=== PATIENT | female | born 1950 | race Caucasian/White ===

== ENCOUNTER 2018-05-28 14:19 | Emergency (ER) | payer MEDICARE ==
[~2018-05-28] VITALS: Wt 152.7 kg
[2018-05-28] MEDS ORDERED: ONDANSETRON 4 MG INJ IV STA (16:21)
[2018-05-28] MEDS ORDERED: SOD CHLORIDE 0.9% 1,000 ML IV STA ×2 (16:21→18:19)
[2018-05-28] MEDS ORDERED: LIDOCAINE/MYLANTA 40 ML BTL PO STA (18:21)
[2018-05-28] MEDS ORDERED: FAMOTIDINE 20 MG TAB PO STA (18:21)
[2018-05-28 18:35] VITALS: BP 149/83; PULSE 86; RESP 20
[2018-05-28] MEDS ORDERED: FAMO-96 PO (20:06)
[2018-05-28] MEDS ORDERED: ONDA4TAB14 PO (20:06)
--- NOTE | 2018-05-29 00:12 | ERD ---
ER Documentation Chief Complaint Chief Complaint vomiting x 1 week, denies any pain, denies any medical hx HPI 68-year-old female with no significant past medical history pain with complaints of nausea and vomiting for the past 6 days after eating out at a restaurant a week ago. She has been feeling nauseated with some epigastric discomfort, acid reflux, and vomiting. She denies any diarrhea or constipation. No hematochezia or melena. No hematemesis. She denies any associated headache, fever, chills, focal weakness or numbness, chest pain, shortness of breath, or abdominal pain. No dysuria or hematuria. She is not currently on any medications. ROS All systems reviewed and are negative except as per history of present illness. Medications Home Meds Active Scripts Ondansetron (Ondansetron Odt) 4 Mg Tab.rapdis, 4 MG PO Q6H PRN for NAUSEA AND/OR VOMITING, #10 TAB Prov:MARK SARABIA MD 05/28/18 Famotidine* (Pepcid*) 20 Mg Tablet, 20 MG PO BID for 10 Days, TAB Prov:MARK SARABIA MD 05/28/18 Allergies Allergies: Coded Allergies: No Known Allergy (Unverified , 05/28/18) PMhx/Soc Medical and Surgical Hx: pt denies Medical Hx, pt denies Surgical Hx Hx Alcohol Use: No Hx Substance Use: No Hx Tobacco Use: No Smoking Status: Never smoker FmHx Family History: No diabetes Physical Exam Vitals Vital Signs Date Temp Pulse Resp B/P (MAP) Pulse Ox O2 O2 Flow FiO2 Time Delivery Rate 05/28/18 86 20 149/83 96 Room Air 18:35 (105) 05/28/18 98.3 87 14 135/93 97 Room Air 18:04 (107) 05/28/18 98.3 92 20 122/96 95 Room Air 17:13 (105) 05/28/18 98.3 101 20 145/93 95 Room Air 16:15 (110) 05/28/18 98.3 119 20 127/75 94 14:24 (92) Physical Exam Const: No acute distress, well-appearing. Obese. Head: Atraumatic Eyes: Normal Conjunctiva ENT: Dry mucous membranes. Normal External Ears, Nose and Mouth. Neck: Full range of motion. No meningismus. Resp: Clear to auscultation bilaterally Cardio: Regular rate and rhythm, no murmurs Abd: Soft, non tender, non distended. Normal bowel sounds Skin: No petechiae or rashes Back: No midline or flank tenderness Ext: No cyanosis, or edema Neur: Awake and alert, normal speech, no facial asymmetry, moving all extremities Psych: Normal Mood and Affect Result Diagram: 05/28/18 1659 05/28/18 1659 Results 24 hrs Laboratory Tests Test 05/28/18 16:59 White Blood Count 13.3 10^3/ul Red Blood Count 6.07 10^6/ul Hemoglobin 17.5 g/dl Hematocrit 53.2 % Mean Corpuscular Volume 87.6 fl Mean Corpuscular Hemoglobin 28.8 pg Mean Corpuscular Hemoglobin Concent 32.9 g/dl Red Cell Distribution Width 15.4 % Platelet Count 257 10^3/UL Mean Platelet Volume 11.8 fl Immature Granulocytes % 0.500 % Neutrophils % 72.7 % Lymphocytes % 15.8 % Monocytes % 10.0 % Eosinophils % 0.5 % Basophils % 0.5 % Nucleated Red Blood Cells % 0.0 /100WBC Immature Granulocytes # 0.070 10^3/ul Neutrophils # 9.7 10^3/ul Lymphocytes # 2.1 10^3/ul Monocytes # 1.3 10^3/ul Eosinophils # 0.1 10^3/ul Basophils # 0.1 10^3/ul Nucleated Red Blood Cells # 0.0 10^3/ul Sodium Level 135 mmol/L Potassium Level 3.4 mmol/L Chloride Level 89 mmol/L Carbon Dioxide Level 26 mmol/L Anion Gap 20 Blood Urea Nitrogen 31 mg/dl Creatinine 1.59 mg/dl Est Glomerular Filtrat Rate mL/min 32 mL/min Glucose Level 168 mg/dl Calcium Level 9.6 mg/dl Total Bilirubin 1.2 mg/dl Direct Bilirubin 0.00 mg/dl Indirect Bilirubin 1.2 mg/dl Aspartate Amino Transf (AST/SGOT) 45 IU/L Alanine Aminotransferase (ALT/SGPT) 25 IU/L Alkaline Phosphatase 118 IU/L Total Protein 8.3 g/dl Albumin 4.4 g/dl Globulin 3.90 g/dl Albumin/Globulin Ratio 1.12 Lipase 245 U/L Current Medications Medications Dose Sig/Jovon Start Time Status Last (Trade) Ordered Route PRN Stop Time Admin Dose Reason Admin Sodium 1,000 ml @ Q1H STAT 05/28/18 DC 05/28/18 Chloride 1,000 mls/hr IV 16:21 16:25 05/28/18 17:20 Ondansetron 4 mg ONCE STAT 05/28/18 DC 05/28/18 HCl (Zofran IV 16:21 16:29 Inj) 05/28/18 16:23 Sodium 1,000 ml @ Q1H STAT 05/28/18 DC 05/28/18 Chloride 1,000 mls/hr IV 18:19 18:31 05/28/18 19:18 Famotidine 20 mg ONCE STAT 05/28/18 DC 05/28/18 (Pepcid) PO 18:21 18:31 05/28/18 18:22 40 ml ONCE STAT 05/28/18 DC 05/28/18 Miscellaneous PO 18:21 18:31 Medication 05/28/18 18:22 (Gi Cocktail (2)) Procedures/MDM EMERGENT LABS AND DIAGNOSTIC STUDIES: Lab Results above were reviewed and interpreted by me. CBC: Mild leukocytosis and elevated hemoglobin, likely secondary to hemoconcen tration from dehydration CMP: Elevated BUN and creatinine, consistent with acute renal insufficiency, likely prerenal etiology. Borderline hypokalemia. No evidence of acidosis, hypoglycemia, liver failure, or biliary obstruction Lipase: no evidence of pancreatitis 12-lead EKG was interpreted by Rocio Sarabia MD: Normal sinus rhythm Normal axis Normal intervals Abnormal R wave progression No acute ST or T wave changes suggestive of acute ischemia or STEMI. Initial Nursing notes reviewed. Previous Medical Records requested via the Electronic Health Record. EMERGENCY DEPARTMENT COURSE / MEDICAL DECISION MAKING: Patient is presenting with 1 week of nausea and vomiting with symptoms of gastritis as well. Initially she was tachycardic when she arrived and obviously dehydrated on exam. 2 L of IV fluids were given as well as antiemetics and GI cocktail. Labs did show evidence of prerenal azotemia, likely secondary to dehydration. After treatment, she was reevaluated and her symptoms had significantly improved. She was tolerating fluids by mouth in the ER with no further vomiting. I recommended discharge as the patient has remained stable. She does have acute renal insufficiency which may be followed up outpatient. Patient reassured me that she will be able to get seen by a I discussed with her DrAdolfo this week to get repeat blood tests within the next 3 days to recheck her kidney function. The results of her testing and my thoughts as to why her kidney function was diminished. Now that the patient is able to orally hydrate, she feels that she is comfortable going home. I encouraged to return for any worsening symptoms. She ensures me that she will get outpatient follow-up for repeat blood testing. I provided her with a copy of her results from today. Patient was stable upon discharge. Patient's blood pressure was elevated (>120/80) but appears stable without evidence of hypertensive emergency or urgency. The patient was counseled about the risks of hypertension and urged to pursue outpatient monitoring and therapy within a week with their primary care physician. Departure Diagnosis: Primary Impression: Vomiting Vomiting type: unspecified Vomiting Intractability: non-intractable Nausea presence: with nausea Qualified Codes: R11.2 - Nausea with vomiting, unspecified Additional Impressions: Acute renal insufficiency Dehydration Condition: Stable Patient Instructions: Vomiting (6Y-Adult), Renal Insufficiency Additional Instructions: Your kidney function was abnormal today, likely because of all of your vomiting and dehydration. I would like you to get your kidney function checked again within the next 2-3 days. If any of your symptoms worsen, return to the ER immediately. MARK SARABIA MD May 29, 2018 00:12
== END 2018-05-28 21:49 | disposition home or self-care (01) ==
LOC: E/R 14:19
DX: N28.9 Disorder of kidney and ureter, unspecified (principal); E86.0 Dehydration
CPT/HCPCS: 36415; 80053; 83690; 85025; 93005; 96374; 99284; J2405; J7030

== ENCOUNTER 2018-05-30 15:05 | Inpatient (IN) | payer MEDICARE ==
[~2018-05-30] VITALS: Ht 167.6 cm; Wt 159.7 kg
[2018-05-30] VITALS (20 sets, daily range): BP systolic 65–147; BP diastolic 49–84; PULSE 76–94; RESP 15–25
[~2018-05-30 15:05] MED LIST: DESFLURANE 15 MIN ONE; FAMO-96 PO; LIDOCAINE 2% (SDV) 5 ML INJ ONE; ONDA4TAB14 PO; PROPOFOL 200 MG INJ ONE
[2018-05-30] MEDS ORDERED: SOD CHLORIDE 0.9% 1,000 ML IV STA (15:17)
[2018-05-30] MEDS ORDERED: ONDANSETRON 4 MG INJ IV STA ×2 (15:17→17:44)
--- NOTE | 2018-05-30 16:02 | ERD ---
ER Documentation Chief Complaint Chief Complaint Nausea vomiting x 1 week. denies abdominal pain or sob HPI 68F no prior abd surgeries with nausea and vomiting x 1 week. Seen here over the weekend for same. Patient with persistent symptoms with NBNB emesis, and mild epigastric abdominal pain. No BM x 1week but passing gas. No chest pain fever, chills, or headache. ROS All systems reviewed and are negative except as per history of present illness. Medications Home Meds Active Scripts Ondansetron (Ondansetron Odt) 4 Mg Tab.rapdis, 4 MG PO Q6H PRN for NAUSEA AND/OR VOMITING, #10 TAB Prov:MARK RIOS MD 05/28/18 Famotidine* (Pepcid*) 20 Mg Tablet, 20 MG PO BID for 10 Days, TAB Prov:MARK RIOS MD 05/28/18 Allergies Allergies: Coded Allergies: No Known Allergy (Unverified , 05/30/18) PMhx/Soc Hx Miscellaneous Medical Probl: Yes (OBESE) Hx Alcohol Use: No Hx Substance Use: No Hx Tobacco Use: No Smoking Status: Never smoker FmHx Family History: No diabetes Physical Exam Vitals Vital Signs Date Temp Pulse Resp B/P (MAP) Pulse Ox O2 O2 Flow FiO2 Time Delivery Rate 05/30/18 79 18 126/78 99 Room Air 17:46 (94) 05/30/18 98.6 102 18 131/76 95 15:13 (94) Physical Exam General: Well developed, well nourished, no acute distress Head: Normocephalic, atraumatic. Eyes: Pupils equally reactive, EOM intact ENT: Moist mucous membranes Neck: Supple, no lymphadenopathy Respiratory: Lungs clear bilaterally, no distress Cardiovascular: RRR, no murmurs, rubs, or gallops Abdominal: Soft, somewhat firm epigastrium without rebound or guarding, no peritonitis, no pulsatile mass : Deferred MSK: No edema, no unilateral swelling, 5/5 strength Neurologic: Alert and oriented, moving all extremities, normal speech, no focal weakness, no cerebellar signs Skin: No rash Psych: Normal mood Result Diagram: 05/30/18 1603 05/30/18 1603 Results 24 hrs Laboratory Tests Test 05/30/18 16:03 White Blood Count 10.7 10^3/ul Red Blood Count 5.63 10^6/ul Hemoglobin 16.5 g/dl Hematocrit 49.5 % Mean Corpuscular Volume 87.9 fl Mean Corpuscular Hemoglobin 29.3 pg Mean Corpuscular Hemoglobin Concent 33.3 g/dl Red Cell Distribution Width 14.7 % Platelet Count 224 10^3/UL Mean Platelet Volume 12.3 fl Immature Granulocytes % 0.500 % Neutrophils % 78.3 % Lymphocytes % 8.7 % Monocytes % 11.5 % Eosinophils % 0.4 % Basophils % 0.6 % Nucleated Red Blood Cells % 0.0 /100WBC Immature Granulocytes # 0.050 10^3/ul Neutrophils # 8.4 10^3/ul Lymphocytes # 0.9 10^3/ul Monocytes # 1.2 10^3/ul Eosinophils # 0.0 10^3/ul Basophils # 0.1 10^3/ul Nucleated Red Blood Cells # 0.0 10^3/ul Sodium Level 135 mmol/L Potassium Level 3.5 mmol/L Chloride Level 90 mmol/L Carbon Dioxide Level 29 mmol/L Anion Gap 16 Blood Urea Nitrogen 26 mg/dl Creatinine 1.15 mg/dl Est Glomerular Filtrat Rate mL/min 47 mL/min Glucose Level 170 mg/dl Calcium Level 9.2 mg/dl Total Bilirubin 0.7 mg/dl Direct Bilirubin 0.00 mg/dl Indirect Bilirubin 0.7 mg/dl Aspartate Amino Transf (AST/SGOT) 28 IU/L Alanine Aminotransferase (ALT/SGPT) 31 IU/L Alkaline Phosphatase 94 IU/L Troponin I < 0.012 ng/ml Total Protein 7.6 g/dl Albumin 4.0 g/dl Globulin 3.60 g/dl Albumin/Globulin Ratio 1.11 Lipase 821 U/L Current Medications Medications Dose Sig/Jovon Start Time Status Last (Trade) Ordered Route PRN Stop Time Admin Dose Reason Admin Sodium 1,000 ml @ Q1H STAT 05/30/18 DC 05/30/18 Chloride 1,000 mls/hr IV 15:17 16:05 05/30/18 16:16 Ondansetron 4 mg ONCE STAT 05/30/18 DC 05/30/18 HCl (Zofran IV 15:17 16:05 Inj) 05/30/18 15:18 Lidocaine 15 ml ONCE ONCE 05/30/18 DC 05/30/18 (Xylocaine PO 17:30 17:47 (Viscous)) 05/30/18 17:31 Lorazepam 0.5 mg ONCE ONCE 05/30/18 DC 05/30/18 (Ativan) IV 17:30 17:47 05/30/18 17:31 Ondansetron 4 mg ONCE STAT 05/30/18 DC 05/30/18 HCl (Zofran IV 17:44 17:47 Inj) 05/30/18 17:45 Ampicillin 100 ml @ ONCE ONCE 05/30/18 Sodium/ 100 mls/hr IVPB 18:00 Sulbactam 05/30/18 18:59 Sodium Ondansetron 4 mg BRIDGE ORDER 05/30/18 HCl (Zofran PRN IV 18:30 Inj) NAUSEA/VOMITI 05/31/18 18:29 NG 650 mg ER BRIDGE 05/30/18 Acetaminophen PRN PO 18:30 (Tylenol .MILD PAIN 05/31/18 18:29 Tab) 1-3 OR TEMP IV Flush 3 ml PER 05/30/18 (NS 3 ml) PROTOCOL IV 18:30 Ondansetron 4 mg Q6H PRN 05/30/18 HCl (Zofran IV 18:30 Inj) NAUSEA/VOMITI NG 650 mg Q6H PRN 05/30/18 Acetaminophen PO .PAIN 1-3 18:30 (Tylenol OR TEMP Tab) 1 tab Q6H PRN 05/30/18 Acetaminophen PO .MOD PAIN 18:30 / 4-6 Hydrocodone Bitart ([place] (5/325)) Morphine 2 mg Q4H PRN 05/30/18 Sulfate IV .SEVERE 18:30 (morphine) PAIN 7-10 Docusate 100 mg Q12H PRN 05/30/18 Sodium PO 18:30 (Colace) .CONSTIPATION Magnesium 30 ml DAILY PRN 05/30/18 Hydroxide PO 18:30 (Milk Of Mag) .CONSTIPATION 40 mg DAILY@06 05/31/18 Pantoprazole IV 06:00 (Protonix Iv) Sodium 1,000 ml @ [id number] IV 05/30/18 Chloride 75 mls/hr 18:23 Lorazepam 0.5 mg Q6H PRN 05/30/18 (Ativan) IV ANXIETY 18:30 Albuterol/ 3 ml Q4H RESP 05/30/18 Ipratropium THERAPY PRN 18:30 (Duoneb) HHN SHORTNESS OF BREATH Hydralazine 10 mg Q6H PRN 05/30/18 HCl IV ELEVATED 18:30 (Apresoline) BLOOD PRESSURE 1 tab Q5M PRN 05/30/18 Nitroglycerin SL ANGINA 18:30 (Nitroglyceri n (Sl Tab) 0.4 Mg) Procedures/MDM EKG, MONITORS, & DIAGNOSTIC IMAGING: CT abdomen and pelvis: IMPRESSION: 1. Findings consistent with small bowel obstruction with transitional point in the right pelvis/distal ileum. 2. Status post cholecystectomy. Diffuse pneumobilia of the common bile duct extending to the left greater than right biliary system. Correlate with prior ER CP/sphincterotomy. 3. CBD is mildly dilated and measures 8 mm. No obstructive mass or stone is identified distally. 4. Multiple colonic diverticulosis. LAB INTERPRETATION: I reviewed the laboratory testing and it shows no acute process MEDICAL DECISION MAKING: The patient has persistent nausea and vomiting with a firm epigastrium. The patient does not have any significant risk factors for bowel obstruction but given the patient's persistence of symptoms, decreased bowel movements I am concerned for possible acute process. CT imaging of the abdomen pelvis would be appropriate. ER COURSE: * Hydration and symptom control medications provided * The patient has CT evidence of small bowel obstruction. NG tube placed. Patient had output of 1 L, mild improvement * General surgeon notified. Dr. Harris reviewed the CT we discussed the possibility of cholecystectomy in the patient's history but she denies surgical intervention in the past. Likely completely compressed gallbladder. Given the possible air in the biliary tree Unasyn provided. * Given the duration of symptoms Dr. Harris would like to take the patient to the operating room. The patient was informed. She is n.p.o. NG tube is placed. Pain is well controlled. CONSULTATION: General surgeon Dr. Harris as documented above DISPOSITION PLAN: Accepting care team and consultations: I discussed the current laboratory data, diagnostic imaging and emergency care provided. Admitting team: Dr. Armas Admitting team indication: Insurance directed Departure Diagnosis: Primary Impression: Small bowel obstruction Additional Impressions: Pneumobilia Nausea and vomiting Vomiting type: unspecified Vomiting Intractability: intractable Qualified Codes: R11.2 - Nausea with vomiting, unspecified Condition: Stable TERRY KATE MD May 30, 2018 16:02
[2018-05-30] MEDS ORDERED: LIDOCAINE 2% VISC 15 ML CUP PO ONE (17:30)
[2018-05-30] MEDS ORDERED: LORAZEPAM 2 MG INJ IV ONE (17:30)
[2018-05-30] MEDS ORDERED: AMPICILLIN/SULB 3 GM/NS (PMX) 100 ML IVPB ONE (18:00)
[2018-05-30] MEDS ORDERED: ACETAMINOPHEN 325 MG TAB PO PRN ×2 (18:30)
[2018-05-30] MEDS ORDERED: ALBUTEROL/IPRATROPIUM (NEB) 3 ML AMP HHN PRN (18:30)
[2018-05-30] MEDS ORDERED: ONDANSETRON 4 MG INJ IV PRN ×3 (18:30→22:30)
[2018-05-30] MEDS ORDERED: morphine 2 MG INJ IV PRN ×2 (18:30→22:30)
[2018-05-30] MEDS ORDERED: NITROGLYCERIN (SL) 0.4 MG TAB SL PRN (18:30)
[2018-05-30] MEDS ORDERED: HYDROCODONE/APAP (5/325) TAB PO PRN (18:30)
[2018-05-30] MEDS ORDERED: MAGNESIUM HYDROXIDE 30ML CUP PO PRN (18:30)
[2018-05-30] MEDS ORDERED: NACL 0.9% 3 ML SYG IV SCH (18:30)
[2018-05-30] MEDS ORDERED: hydrALAzine 20 MG INJ IV PRN (18:30)
[2018-05-30] MEDS ORDERED: DOCUSATE SODIUM 100 MG CAP PO PRN (18:30)
[2018-05-30] MEDS ORDERED: LIDOCAINE 1% (MPF) 30 ML INJ ONE (18:50)
[2018-05-30] MEDS ORDERED: BUPIVACAINE 0.5%/EPI (SDV) 30 ML INJ ONE (18:50)
--- NOTE | 2018-05-30 19:25 | PREAC ---
Date/Time of Note Date/Time of Note DATE: 05/30/18 TIME: 19:24 Anesthesia Eval and Record Evaluation Time Pre-Procedure Interview DATE: 05/30/18 TIME: 19:24 Age 68 Sex female NPO: 8 hrs Preoperative diagnosis bowel obstruction Planned procedure ex lap Past Medical History Past Medical History: Includes GI: Obesity Surgery & Anesthesia Issues No known issue Meds Anticoagulation: No Beta Karolina within 24 hr: No Reason Beta Karolina not given: Pt. not on B-Karolina Active Scripts Ondansetron (Ondansetron Odt) 4 Mg Tab.rapdis, 4 MG PO Q6H PRN for NAUSEA AND/OR VOMITING, #10 TAB Prov:MARK RIOS MD 05/28/18 Famotidine* (Pepcid*) 20 Mg Tablet, 20 MG PO BID for 10 Days, TAB Prov:MARK RIOS MD 05/28/18 Current Medications Ondansetron HCl (Zofran Inj) 4 mg BRIDGE ORDER PRN IV NAUSEA/VOMITING; Start 05/30/18 at 18:30; Stop 05/31/18 at 18:29 Acetaminophen (Tylenol Tab) 650 mg ER BRIDGE PRN PO .MILD PAIN 1-3 OR TEMP; Start 05/30/18 at 18:30; Stop 05/31/18 at 18:29 IV Flush (NS 3 ml) 3 ml PER PROTOCOL IV ; Start 05/30/18 at 18:30 Ondansetron HCl (Zofran Inj) 4 mg Q6H PRN IV NAUSEA/VOMITING; Start 05/30/18 at 18:30 Acetaminophen (Tylenol Tab) 650 mg Q6H PRN PO .PAIN 1-3 OR TEMP; Start 05/30/18 at 18:30 Acetaminophen/ Hydrocodone Bitart ([place] (5/325)) 1 tab Q6H PRN PO .MOD PAIN 4- 6; Start 05/30/18 at 18:30 Morphine Sulfate (morphine) 2 mg Q4H PRN IV .SEVERE PAIN 7-10; Start 05/30/18 at 18:30 Docusate Sodium (Colace) 100 mg Q12H PRN PO .CONSTIPATION; Start 05/30/18 at 18:30 Magnesium Hydroxide (Milk Of Mag) 30 ml DAILY PRN PO .CONSTIPATION; Start 05/30/18 at 18:30 Pantoprazole (Protonix Iv) 40 mg DAILY@06 IV ; Start 05/31/18 at 06:00 Sodium Chloride 1,000 ml @ 75 mls/hr [id number] IV ; Start 05/30/18 at 18:23 Lorazepam (Ativan) 0.5 mg Q6H PRN IV ANXIETY; Start 05/30/18 at 18:30 Albuterol/ Ipratropium (Duoneb) 3 ml Q4H RESP THERAPY PRN HHN SHORTNESS OF BREATH; Start 05/30/18 at 18:30 Hydralazine HCl (Apresoline) 10 mg Q6H PRN IV ELEVATED BLOOD PRESSURE; Start 05/30/18 at 18:30 Nitroglycerin (Nitroglycerin (Sl Tab) 0.4 Mg) 1 tab Q5M PRN SL ANGINA; Start 05/30/18 at 18:30 Meds reviewed: Yes Allergies Coded Allergies: No Known Allergy (Unverified , 05/30/18) Allergies Reviewed: Yes Labs/Studies Labs Reviewed: Reviewed by anesthesiologist Result Diagram: 05/30/18 1603 05/30/18 1603 Laboratory Tests 05/30/18 16:03 test: N/A Pre-procedure Exam Last vitals Vital Signs Date Temp Pulse Resp B/P (MAP) Pulse Ox O2 O2 Flow FiO2 Time Delivery Rate 05/30/18 79 18 126/78 99 Room Air 17:46 (94) 05/30/18 98.6 15:13 Airway: Adequate mouth opening, Adequate thyromental dist Mallampati: Mallampati IV Teeth: Normal Lung: Normal Heart: Normal ASA Physical Status ASA physical status: 2 Emergency: E Pre-operative Attestations Prior to commencing anesthesia and surgery, the patient was re-evaluated, there was verification of: *The patient's identity *The results of appropriate recent lab work and preoperative vital signs *The above evaluation not changing prior to induction *Anesthetic plan, risk benefits, alternative and complications discussed with patient/family; questions answered; patient/family understands, accepts and wishes to proceed. BEAR MAGAÑA DO May 30, 2018 19:25
--- NOTE | 2018-05-30 19:42 | CONS ---
Assessment/Plan Assessment/Plan Hospital Course (Demo Recall) NG tube was placed that drained fecal content. Problems: (1) Gallstone ileus of small intestine (2) Pneumobilia Status: Acute (3) Small bowel obstruction Status: Acute Assessment/Plan (Daily) Patient presents with a clinical picture of gallstone ileus. 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 Patient need emergency surgery to resolve the high-grade small bowel obstruction. I discussed with the patient risk and benefits are discussed possible complications and possible side effects of the surgery including but not limited to bleeding infection wound infection anesthesia complication blood clots. I will I will attempt to do a laparoscopic exploration to minimize the incision but the patient will probably need a laparotomy to solve the problem Consultation Date/Type/Reason Admit Date/Time Date of Consultation: May 30, 2018 Type of Consult Surgical Reason for Consultation Small bowel obstruction Requesting Provider: TERRY KATE MD Date/Time of Note DATE: 05/30/18 TIME: 19:32 Hx of Present Illness 9 days ago patient developed abdominal pain nausea and vomiting. She has been with the situation at home for about a week until she presented to the emergency room 2 days ago at [facility]. She was observed blood tests were done and she was discharged. Patient returned today complaining of severe nausea and vomiting obstipation and constipation that lasted for the last 9 days. Patient also complained on the right lower quadrant abdominal pain. 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 Last time patient seen the health care provider was approximately 10 years ago. Patient considers herself being healthy that is why she did not seek any medical advice. Constitutional: no complaints, improved Eyes: no complaints ENT: no complaints Respiratory: no complaints Cardiovascular: no complaints Gastrointestinal: pain, constipation, nausea, vomiting, other (Abdominal distention) Genitourinary: no complaints Musculoskeletal: no complaints Skin: no complaints Neurologic: no complaints Endocrine: no complaints Lymphatic: no complaints Psychological: no complaints, nl mood/affect Immunologic: no complaints Past Medical History Medical History: no pertinent history Home Meds Active Scripts Ondansetron (Ondansetron Odt) 4 Mg Tab.rapdis, 4 MG PO Q6H PRN for NAUSEA AND/OR VOMITING, #10 TAB Prov:MARK RIOS MD 05/28/18 Famotidine* (Pepcid*) 20 Mg Tablet, 20 MG PO BID for 10 Days, TAB Prov:MARK RIOS MD 05/28/18 Medications Current Medications Ondansetron HCl (Zofran Inj) 4 mg BRIDGE ORDER PRN IV NAUSEA/VOMITING; Start 05/30/18 at 18:30; Stop 05/31/18 at 18:29 Acetaminophen (Tylenol Tab) 650 mg ER BRIDGE PRN PO .MILD PAIN 1-3 OR TEMP; Start 05/30/18 at 18:30; Stop 05/31/18 at 18:29 IV Flush (NS 3 ml) 3 ml PER PROTOCOL IV ; Start 05/30/18 at 18:30 Ondansetron HCl (Zofran Inj) 4 mg Q6H PRN IV NAUSEA/VOMITING; Start 05/30/18 at 18:30 Acetaminophen (Tylenol Tab) 650 mg Q6H PRN PO .PAIN 1-3 OR TEMP; Start 05/30/18 at 18:30 Acetaminophen/ Hydrocodone Bitart ([place] (5/325)) 1 tab Q6H PRN PO .MOD PAIN 4- 6; Start 05/30/18 at 18:30 Morphine Sulfate (morphine) 2 mg Q4H PRN IV .SEVERE PAIN 7-10; Start 05/30/18 at 18:30 Docusate Sodium (Colace) 100 mg Q12H PRN PO .CONSTIPATION; Start 05/30/18 at 18 :30 Magnesium Hydroxide (Milk Of Mag) 30 ml DAILY PRN PO .CONSTIPATION; Start 05/30/18 at 18:30 Pantoprazole (Protonix Iv) 40 mg DAILY@06 IV ; Start 05/31/18 at 06:00 Sodium Chloride 1,000 ml @ 75 mls/hr [id number] IV ; Start 05/30/18 at 18:23 Lorazepam (Ativan) 0.5 mg Q6H PRN IV ANXIETY; Start 05/30/18 at 18:30 Albuterol/ Ipratropium (Duoneb) 3 ml Q4H RESP THERAPY PRN HHN SHORTNESS OF BREATH; Start 05/30/18 at 18:30 Hydralazine HCl (Apresoline) 10 mg Q6H PRN IV ELEVATED BLOOD PRESSURE; Start 05/30/18 at 18:30 Nitroglycerin (Nitroglycerin (Sl Tab) 0.4 Mg) 1 tab Q5M PRN SL ANGINA; Start 05/30/18 at 18:30 Allergies: Coded Allergies: No Known Allergy (Unverified , 05/30/18) Past Surgical History Past Surgical Hx: no surgical history Family History Significant Family History: no pertinent family hx Social History Smoking Status: Never smoker Other Social History Patient is retired Exam/Review of Systems Exam Vitals Vital Signs Date Temp Pulse Resp B/P (MAP) Pulse Ox O2 O2 Flow FiO2 Time Delivery Rate 05/30/18 98.1 84 17 106/67 99 Room Air 19:29 (80) Constitutional: alert, oriented, well developed Psych: no complaints, nl mood/affect Head: normocephalic, atraumatic Eyes: nl conjunctiva, EOMI, nl lids, nl sclera, PERRL ENMT: nl external ears & nose, nl lips & teeth, nl nasal mucosa & septum Neck: supple, non-tender Respiratory: clear to auscultation, normal air movement Cardiovascular: regular rate and rhythm, nl pulses Gastrointestinal: other (The abdomen is very obese, is severely distended, tense, not tender to palpation. 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, No nl mental status, No nl speech, No nl strength, No confused, No DTR's symmetric, No focal weakness, No lethargic, No numbness, No reflexes, No unresponsive, No other Skin: nl turgor; No rash or lesions Lymph: nl lymph nodes Results Result Diagram: 05/30/18 1603 05/30/18 1603 Results 24hrs Laboratory Tests Test 05/30/18 16:03 White Blood Count 10.7 Red Blood Count 5.63 H Hemoglobin 16.5 H Hematocrit 49.5 H Mean Corpuscular Volume 87.9 Mean Corpuscular Hemoglobin 29.3 Mean Corpuscular Hemoglobin Concent 33.3 Red Cell Distribution Width 14.7 H Platelet Count 224 Mean Platelet Volume 12.3 H Immature Granulocytes % 0.500 H Neutrophils % 78.3 H Lymphocytes % 8.7 L Monocytes % 11.5 H Eosinophils % 0.4 Basophils % 0.6 Nucleated Red Blood Cells % 0.0 Immature Granulocytes # 0.050 H Neutrophils # 8.4 H Lymphocytes # 0.9 Monocytes # 1.2 H Eosinophils # 0.0 Basophils # 0.1 Nucleated Red Blood Cells # 0.0 Prothrombin Time 12.5 Prothrombin Time Ratio 1.0 INR International Normalized Ratio 0.92 Activated Partial Thromboplast Time 25.8 Sodium Level 135 Potassium Level 3.5 Chloride Level 90 L Carbon Dioxide Level 29 Anion Gap 16 H Blood Urea Nitrogen 26 H Creatinine 1.15 H Est Glomerular Filtrat Rate mL/min 47 L Glucose Level 170 Calcium Level 9.2 Total Bilirubin 0.7 Direct Bilirubin 0.00 Indirect Bilirubin 0.7 Aspartate Amino Transf (AST/SGOT) 28 Alanine Aminotransferase (ALT/SGPT) 31 Alkaline Phosphatase 94 Troponin I < 0.012 Total Protein 7.6 Albumin 4.0 Globulin 3.60 H Albumin/Globulin Ratio 1.11 Lipase 821 H Free Thyroxine 1.[address] scan performed that showed large amount of air in the biliary tree with the no visualization of the gallbladder. In addition to that severe distention of the small bowel with transition point in the right lower quadrant with collapsed large bowel Medications Medication Current Medications Ondansetron HCl (Zofran Inj) 4 mg BRIDGE ORDER PRN IV NAUSEA/VOMITING; Start 05/30/18 at 18:30; Stop 05/31/18 at 18:29 Acetaminophen (Tylenol Tab) 650 mg ER BRIDGE PRN PO .MILD PAIN 1-3 OR TEMP; Start 05/30/18 at 18:30; Stop 05/31/18 at 18:29 IV Flush (NS 3 ml) 3 ml PER PROTOCOL IV ; Start 05/30/18 at 18:30 Ondansetron HCl (Zofran Inj) 4 mg Q6H PRN IV NAUSEA/VOMITING; Start 05/30/18 at 18:30 Acetaminophen (Tylenol Tab) 650 mg Q6H PRN PO .PAIN 1-3 OR TEMP; Start 05/30/18 at 18:30 Acetaminophen/ Hydrocodone Bitart ([place] (5/325)) 1 tab Q6H PRN PO .MOD PAIN 4- 6; Start 05/30/18 at 18:30 Morphine Sulfate (morphine) 2 mg Q4H PRN IV .SEVERE PAIN 7-10; Start 05/30/18 at 18:30 Docusate Sodium (Colace) 100 mg Q12H PRN PO .CONSTIPATION; Start 05/30/18 at 18:30 Magnesium Hydroxide (Milk Of Mag) 30 ml DAILY PRN PO .CONSTIPATION; Start 05/30/18 at 18:30 Pantoprazole (Protonix Iv) 40 mg DAILY@06 IV ; Start 05/31/18 at 06:00 Sodium Chloride 1,000 ml @ 75 mls/hr [id number] IV ; Start 05/30/18 at 18:23 Lorazepam (Ativan) 0.5 mg Q6H PRN IV ANXIETY; Start 05/30/18 at 18:30 Albuterol/ Ipratropium (Duoneb) 3 ml Q4H RESP THERAPY PRN HHN SHORTNESS OF BREATH; Start 05/30/18 at 18:30 Hydralazine HCl (Apresoline) 10 mg Q6H PRN IV ELEVATED BLOOD PRESSURE; Start 05/30/18 at 18:30 Nitroglycerin (Nitroglycerin (Sl Tab) 0.4 Mg) 1 tab Q5M PRN SL ANGINA; Start 05/30/18 at 18:30 JAMEE AVILES MD May 30, 2018 19:42
[2018-05-30] MEDS ORDERED: FENTAnyl 50 MCG/ML VIAL ONE (19:47)
[2018-05-30] MEDS ORDERED: morphine SULFATE/PF (10 MG/10 ML) INJ ONE (19:47)
[2018-05-30] MEDS ORDERED: MIDAZOLAM 1 MG/ML 2 ML INJ ONE (20:00)
[2018-05-30] MEDS ORDERED: SUCCINYLCHOLINE CHLORIDE 100 MG/5 ML SYG IV ONE (20:00)
[2018-05-30] MEDS ORDERED: PROPOFOL 20 ML ONE (20:00)
--- NOTE | 2018-05-30 20:23 | HP ---
DATE OF ADMISSION: 05/30/2018 IDENTIFICATION: This is a 68-year-old female. CHIEF COMPLAINT: Nausea, vomiting and mild abdominal pain for 8 days. HISTORY OF PRESENT ILLNESS: A 68-year-old female with no significant no prior history of any surgeri es who has been having nausea, vomiting symptoms, some mild abdominal pain for 8 days. She described her vomiting is nonbilious, nonbloody emesis with some heaving and has not had a bowel movement for the last 6 days, but has been passing gas. No prior history of this. Again, no prior history of any surgeries. Denies any upper or lower GI bleeding, no fevers or chills, no diarrhea or constipation. No headaches or dizziness. When she came in, she had a CT abdomen and pelvis performed and it show ed findings consistent with small bowel obstruction with transition point in the right pelvis distal ileum. She is also status post cholecystectomy in the past based on what the CT scan showed even tho ugh she denied. SURGICAL HISTORY: There is also diffuse pneumobilia of the common bile duct extending to the left gr eater than right biliary system. CBD is mildly dilated at 8 mm. No obstructive mass or stone is ju ntified distally multiple colonic diverticulosis. A call was made out to the general surgeon who has come to evaluate the patient. An NG tube is in place now as well. The patient did come to the ER 48 hours ago for similar symptoms, but was sent home with what looks l melonie Pepcid and Zofran at that time which obviously did not relieve her symptoms. PAST MEDICAL HISTORY: As above. ALLERGIES: NO KNOWN DRUG ALLERGIES. MEDICATIONS AT HOME: 1. Pepcid 20 mg b.i.d. 2. Zofran 4 mg q.6h. p.r.n. PAST SURGICAL HISTORY: The patient denies any past medical history, but again her CT scan did show s igns of a prior cholecystectomy. So, it is unclear if she remembers she had her cholecystectomy, she in fact did. SOCIAL HISTORY: Former smoker, quit 15 years ago. Denies any alcohol abuse or IV drug abuse. FAMILY HISTORY: Noncontributory. PHYSICAL EXAMINATION: VITAL SIGNS: T-max 98.6, pulse 79 to 102, respirations 18, blood pressure 126 to 131 systolic over 7 0 to 76 diastolic, satting at 99% on room air. GENERAL: The patient is lying in bed, answering questions appropriately. No acute distress. NG tub e in place. HEENT: Pupils equal, round, reactive to light, somewhat intact. NECK: Supple, no thyromegaly. LUNGS: Clear to auscultation bilaterally. CARDIOVASCULAR: S1, S2 heard. No rubs or gallops. ABDOMEN: Slightly firm, slightly distended, but no rebound or guarding. Normal bowel sounds, nonten jeramie. MUSCULOSKELETAL: No lower extremity edema bilaterally. NEUROLOGIC: No focal deficits. LABORATORIES: CBC is normal. Basic metabolic panel. Sodium 135, potassium 3.5, chloride 90, CO2 29 , BUN 26, creatinine 1.15, glucose 170. LFTs are normal. Troponin is negative x1. Lipase is slight ly elevated at 121. Again, we mentioned the CT scan of abdomen and pelvis findings. Coags are diane wilson. ASSESSMENT AND PLAN: A 68-year-old female coming in with nausea, vomiting for 8 days with signs of S CHEL[place] on CT scan. Now, NG tube in place. 1. Nausea, vomiting, abdominal pain secondary to SBO. Admit the patient. Continue NG tube. We gwen l get a surgery consult. The patient likely will be treated conservatively with NG tube versus surgi duran treatment. We will discuss with surgery team. Continue antiemetic medications, IV fluids, check CBC and BMP in the a.m. 2. Questionable history of prior cholecystectomy. Again, unclear. We will discuss with surgery tea m given the CT scan of the ____ findings. Continue pain control medications and antiemetics as well. 3. Gastrointestinal prophylaxis, PPI. 4. Deep venous thrombosis prophylaxis, put her on SCDs for now. Dictated By: JESSE KAPLAN Conf#: [id number] DID#: [id number] CC: Ruddy Harris;*EndCC*
[2018-05-30] MEDS ORDERED: EPHEDrine 50 MG INJ ONE (20:26)
[2018-05-30] MEDS ORDERED: VASOPRESSIN 20 UNITS INJ ONE (20:26)
[2018-05-30] MEDS ORDERED: ROPIVACAINE 0.5 % 30 ML VIAL ONE (21:53)
--- NOTE | 2018-05-30 22:01 | SIPON ---
Date/Time of Note Date/Time of Note DATE: 05/30/18 TIME: 21:59 Operative Report Preoperative Diagnosis Small bowel obstruction Postoperative Diagnosis Gallstone ileus complete small bowel obstruction Operation/Procedure Performed Small bowel resection and anastomosis. Exploratory laparoscopy converted to laparotomy. Surgeon see signature line patient support assistant None Anesthesia: general Estimated blood loss: 10 - 50 ml's Transfusion Required none Specimen Small bowel Grafts/Implants none Complications none JAMEE AVILES MD May 30, 2018 22:01
--- NOTE | 2018-05-30 22:06 | OPR ---
Date/Time of Note Date/Time of Note DATE: 05/30/18 TIME: 22:01 Operative Report Procedure Date: May 30, 2018 Preoperative Diagnosis Small bowel obstruction Postoperative Diagnosis Gallstone ileus. Complete small bowel obstruction Operation/Procedure Performed Exploratory laparoscopy converted to laparotomy. Small bowel resection. Surgeon see signature line Decorating Supervisor None Anesthesia Type: general Anesthesiologist: BEAR MAGAÑA DO Estimated Blood Loss: 10 - 50 ml's Transfusion none Specimen Small bowel Grafts/Implants none Complications none Pt Condition Post Procedure: stable Disposition: PACU Indications 68-year-old female presented to emergency room with a clinical picture of 10 days of small bowel obstruction. CT scan showed small bowel obstruction with transition point in the right lower quadrant, and pneumobilia. Gallstone ileus was suspected. Procedure Description Patient was brought to operating room positioned supine general endotracheal anesthesia was induced. The abdomen was prepped and draped in the usual sterile fashion. Procedure was started by performing timeout and after that the 5 mm trocar Optiview connected to 5 mm camera was introduced in the right lower quadrant. I was able to insufflate the abdomen however because of the significantly distended bowel the visibility was very poor and I decided to convert to laparotomy. Lower midline laparotomy was performed the fascia was opened and the wound protector/retractor was placed. The bowel was exteriorized, and after that I found the point of obstruction which was in the distal terminal ileum. The large stone was easily palpated in the lumen of the terminal ileum completely obstructing the small bowel. Few adhesions at that point were taken down. After that the decision was made to perform the small bowel resection because I was unable to milk the stone proximally. The small bowel resection was performed by applying 55 mm linear cutter proximally and distally to the obstructive obstructing point. The mesentery was taken down using clamps and suture ligatures. After that side to side small bowel anastomosis was performed by using 55 mm linear cutter and TA 60. Mesentery was closed using 2-0 Vicryl suture. Abdomen was irrigated and all the fluid was carefully sucked out. After that laparotomy was closed by running 1 PDS suture starting from the upper and lower edges of the wound. The sutures were tied to each other in the middle. Wound was irrigated and skin was approximated with clips. Instrument and sponge counts were correct x2. Patient transferred to recovery room. JAMEE AVILES MD May 30, 2018 22:06
[2018-05-30] MEDS ORDERED: SUGAMMADEX SODIUM 200 MG/2 ML VIAL IV ONE (22:10)
[2018-05-30] MEDS ORDERED: FLUMAZENIL 0.5 MG INJ ONE (22:13)
[2018-05-30] MEDS ORDERED: SOD CHLORIDE 0.9% 500 ML IV ONE (22:22)
[2018-05-30] MEDS ORDERED: KETOROLAC 30 MG INJ IV PRN ×2 (22:30→23:00)
[2018-05-30] MEDS ORDERED: CEFTRIAXONE 1 GM/50 ML (PMX) 50 ML IVPB SCH (22:30)
--- NOTE | 2018-05-30 22:31 | PAC ---
Date/Time of Note Date/Time of Note DATE: 05/30/18 TIME: 22:30 Post-Anesthesia Notes Post-Anesthesia Note Last documented vital signs Vital Signs Date Temp Pulse Resp B/P (MAP) Pulse Ox O2 O2 Flow FiO2 Time Delivery Rate 05/30/18 98 79 20 130/65) 99 Room Air 2230 05/30/18 98.6 15:13 Activity: WNL Respiratory function: WNL Cardiovascular function: WNL Mental status: Baseline Pain reasonably controlled: Yes Hydration appropriate: Yes Nausea/Vomiting absent: Yes BEAR MAGAÑA DO May 30, 2018 22:31
[2018-05-30] MEDS ORDERED: HYDROmorphONE 0.5 MG/0.5 ML SYG IV PRN ×2 (23:00)
[2018-05-30] MEDS ORDERED: NALOXONE (0.4 MG/ML) INJ IV PRN (23:00)
[2018-05-31] VITALS (14 sets, daily range): BP systolic 98–126; BP diastolic 55–73; PULSE 78–98; RESP 18–21
[2018-05-31] MEDS: SOD CHLORIDE 0.45% 1,000 ML IV SCH ×2 (01:16→07:34)
[2018-05-31] MEDS: D5W-0.45 NACL + KCL 20 MEQ 1,000 ML IV SCH ×3 (01:22→12:51)
[2018-05-31] MEDS: HEPARIN 5,000 UNIT/1 ML VIAL SC SCH ×3 (05:54→21:32)
[2018-05-31] MEDS: metroNIDAZOLE 500 MG/NS (PMX) 100 ML IVPB SCH ×3 (05:54→21:09)
[2018-05-31] MEDS ORDERED: PANTOPRAZOLE 40 MG INJ IV SCH ×2 (06:00)
--- NOTE | 2018-05-31 12:22 | PN ---
Date/Time of Note Date/Time of Note DATE: 05/31/18 TIME: 12:09 Assessment/Plan VTE Prophylaxis Risk score (from Ns)>0 risk: 10 SCD applied (from Ns): Yes Pharmacological prophylaxis: other Lines/Catheters IV Catheter Type (from [facility]): Peripheral IV Urinary Cath still in place: Yes (Inserted in OR) Reason Cath still needed: urinary retention Assessment/Plan Hospital Course S: Patient had surgical repair of her SBO performed yesterday. Has not passed gas yet. NG tube in place. Denies any significant abdominal pain. Otherwise no acute events overnight, on IV fluids. Asking for some more ice chips. O: VS - see below PHYSICAL EXAMINATION: GENERAL: lying in bed, answering questions appropriately. No acute distress. NG tube in place. HEENT: Pupils equal, round, reactive to light, somewhat intact. NECK: Supple, no thyromegaly. LUNGS: Clear to auscultation bilaterally. CARDIOVASCULAR: S1, S2 heard. No rubs or gallops. ABDOMEN: Less firm less distended, no rebound or guarding. MUSCULOSKELETAL: No lower extremity edema bilaterally. NEUROLOGIC: No focal deficits. A. Date/Time of Note Date/Time of Note DATE: 05/30/18 TIME: 22:01 Operative Report Procedure Date: May 30, 2018 Preoperative Diagnosis Small bowel obstruction Postoperative Diagnosis Gallstone ileus. Complete small bowel obstruction Operation/Procedure Performed Exploratory laparoscopy converted to laparotomy. Small bowel resection. ASSESSMENT AND PLAN: 68-year-old female coming in with nausea, vomiting for 8 days with signs of SBO on CT scan, status post surgical repair POD # 1. 1. Nausea, vomiting, abdominal pain - secondary to SBO. Status post surgical repair postop day #1. - Continue NG tube, per surgery consult recommendations for now - Continue antiemetic medications, IV fluids -Moderate output from NG tube, CBC and BMP every morning 2. AK I: Secondary to #1, likely prerenal component -Continue IV fluids, monitor BUN/creatinine levels in the a.m. 3. Gastrointestinal prophylaxis, PPI. Result Diagram: 05/31/1828 05/31/18827 Results 24hrs Laboratory Tests Test 05/30/18 16:03 05/31/18 08:28 White Blood Count 10.7 12.1 H Red Blood Count 5.63 H 5.39 Hemoglobin 16.5 H 15.8 Hematocrit 49.5 H 47.8 H Mean Corpuscular Volume 87.9 88.7 Mean Corpuscular Hemoglobin 29.3 29.3 Mean Corpuscular Hemoglobin Concent 33.3 33.1 Red Cell Distribution Width 14.7 H 14.6 H Platelet Count 224 184 Mean Platelet Volume 12.3 H 12.9 H Immature Granulocytes % 0.500 H 0.400 Neutrophils % 78.3 H 85.1 H Lymphocytes % 8.7 L 5.2 L Monocytes % 11.5 H 8.8 Eosinophils % 0.4 0.1 Basophils % 0.6 0.4 Nucleated Red Blood Cells % 0.0 0.0 Immature Granulocytes # 0.050 H 0.050 H Neutrophils # 8.4 H 10.3 H Lymphocytes # 0.9 0.6 L Monocytes # 1.2 H 1.1 H Eosinophils # 0.0 0.0 Basophils # 0.1 0.1 Nucleated Red Blood Cells # 0.0 0.0 Prothrombin Time 12.5 Prothrombin Time Ratio 1.0 INR International Normalized Ratio 0.92 Activated Partial Thromboplast Time 25.8 Sodium Level 135 135 Potassium Level 3.5 4.1 Chloride Level 90 L 94 L Carbon Dioxide Level 29 29 Anion Gap 16 H 12 Blood Urea Nitrogen 26 H 29 H Creatinine 1.15 H 1.39 H Est Glomerular Filtrat Rate mL/min 47 L 38 L Glucose Level 170 166 Calcium Level 9.2 8.3 L Total Bilirubin 0.7 Direct Bilirubin 0.00 Indirect Bilirubin 0.7 Aspartate Amino Transf (AST/SGOT) 28 Alanine Aminotransferase (ALT/SGPT) 31 Alkaline Phosphatase 94 Troponin I < 0.012 Total Protein 7.6 Albumin 4.0 Globulin 3.60 H Albumin/Globulin Ratio 1.11 Lipase 821 H Free Thyroxine 1.34 Hemoglobin A1c 5.8 Phosphorus Level 5.4 H Magnesium Level 2.0 Triglycerides Level 73 Cholesterol Level 104 LDL Cholesterol, Calculated 40 HDL Cholesterol 49 Cholesterol/HDL Ratio 2.1 Thyroid Stimulating Hormone (TSH) 0.775 Exam/Review of Systems Exam Vitals Vital Signs Date Temp Pulse Resp B/P (MAP) Pulse Ox O2 O2 Flow FiO2 Time Delivery Rate 05/31/18 97.5 87 21 105/59 96 11:38 (74) 05/31/18 Nasal 2.0 04:33 Cannula Intake and Output 05/30/18 05/30/18 05/31/18 1515:00 23:00 07:00 IntakeIntake Total 2000 ml 0 ml OutputOutput Total 250 ml 550 ml BalanceBalance 1750 ml -550 ml Results Results 24hrs Laboratory Tests Test 05/30/18 16:03 05/31/18 08:28 White Blood Count 10.7 12.1 H Red Blood Count 5.63 H 5.39 Hemoglobin 16.5 H 15.8 Hematocrit 49.5 H 47.8 H Mean Corpuscular Volume 87.9 88.7 Mean Corpuscular Hemoglobin 29.3 29.3 Mean Corpuscular Hemoglobin Concent 33.3 33.1 Red Cell Distribution Width 14.7 H 14.6 H Platelet Count 224 184 Mean Platelet Volume 12.3 H 12.9 H Immature Granulocytes % 0.500 H 0.400 Neutrophils % 78.3 H 85.1 H Lymphocytes % 8.7 L 5.2 L Monocytes % 11.5 H 8.8 Eosinophils % 0.4 0.1 Basophils % 0.6 0.4 Nucleated Red Blood Cells % 0.0 0.0 Immature Granulocytes # 0.050 H 0.050 H Neutrophils # 8.4 H 10.3 H Lymphocytes # 0.9 0.6 L Monocytes # 1.2 H 1.1 H Eosinophils # 0.0 0.0 Basophils # 0.1 0.1 Nucleated Red Blood Cells # 0.0 0.0 Prothrombin Time 12.5 Prothrombin Time Ratio 1.0 INR International Normalized Ratio 0.92 Activated Partial Thromboplast Time 25.8 Sodium Level 135 135 Potassium Level 3.5 4.1 Chloride Level 90 L 94 L Carbon Dioxide Level 29 29 Anion Gap 16 H 12 Blood Urea Nitrogen 26 H 29 H Creatinine 1.15 H 1.39 H Est Glomerular Filtrat Rate mL/min 47 L 38 L Glucose Level 170 166 Calcium Level 9.2 8.3 L Total Bilirubin 0.7 Direct Bilirubin 0.00 Indirect Bilirubin 0.7 Aspartate Amino Transf (AST/SGOT) 28 Alanine Aminotransferase (ALT/SGPT) 31 Alkaline Phosphatase 94 Troponin I < 0.012 Total Protein 7.6 Albumin 4.0 Globulin 3.60 H Albumin/Globulin Ratio 1.11 Lipase 821 H Free Thyroxine 1.34 Hemoglobin A1c 5.8 Phosphorus Level 5.4 H Magnesium Level 2.0 Triglycerides Level 73 Cholesterol Level 104 LDL Cholesterol, Calculated 40 HDL Cholesterol 49 Cholesterol/HDL Ratio 2.1 Thyroid Stimulating Hormone (TSH) 0.775 Medications Medication Current Medications Ondansetron HCl (Zofran Inj) 4 mg BRIDGE ORDER PRN IV NAUSEA/VOMITING; Start 05/30/18 at 18:30; Stop 05/31/18 at 18:29 Acetaminophen (Tylenol Tab) 650 mg ER BRIDGE PRN PO .MILD PAIN 1-3 OR TEMP; Start 05/30/18 at 18:30; Stop 05/31/18 at 18:29 IV Flush (NS 3 ml) 3 ml PER PROTOCOL IV ; Start 05/30/18 at 18:30 Ondansetron HCl (Zofran Inj) 4 mg Q6H PRN IV NAUSEA/VOMITING; Start 05/30/18 at 18:30 Acetaminophen (Tylenol Tab) 650 mg Q6H PRN PO .PAIN 1-3 OR TEMP; Start 05/30/18 at 18:30 Acetaminophen/ Hydrocodone Bitart ([place] (5/325)) 1 tab Q6H PRN PO .MOD PAIN 4- 6; Start 05/30/18 at 18:30 Morphine Sulfate (morphine) 2 mg Q4H PRN IV .SEVERE PAIN 7-10; Start 05/30/18 at 18:30 Docusate Sodium (Colace) 100 mg Q12H PRN PO .CONSTIPATION; Start 05/30/18 at 18:30 Magnesium Hydroxide (Milk Of Mag) 30 ml DAILY PRN PO .CONSTIPATION; Start 05/30/18 at 18:30 Pantoprazole (Protonix Iv) 40 mg DAILY@06 IV Last administered on 05/31/18at 05:53; Admin Dose 40 MG; Start 05/31/18 at 06:00 Lorazepam (Ativan) 0.5 mg Q6H PRN IV ANXIETY; Start 05/30/18 at 18:30 Albuterol/ Ipratropium (Duoneb) 3 ml Q4H RESP THERAPY PRN HHN SHORTNESS OF BREATH; Start 05/30/18 at 18:30 Hydralazine HCl (Apresoline) 10 mg Q6H PRN IV ELEVATED BLOOD PRESSURE; Start 05/30/18 at 18:30 Nitroglycerin (Nitroglycerin (Sl Tab) 0.4 Mg) 1 tab Q5M PRN SL ANGINA; Start 05/30/18 at 18:30 Metronidazole 100 ml @ 100 mls/hr Q8 IVPB Last administered on 05/31/18at 05:54; Admin Dose 100 MLS/HR; Start 05/31/18 at 06:00; Stop 05/31/18 at 22:59 Morphine Sulfate (morphine) 2 mg Q2H PRN IV BREAKTHROUGH PAIN; Start 05/30/18 at 22:30 Diphenhydramine HCl (Benadryl) 25 mg Q6H PRN IV ITCHING; Start 05/30/18 at 22:30 Ondansetron HCl (Zofran Inj) 4 mg Q6H PRN IV NAUSEA AND/OR VOMITING; Start 05/30/18 at 22:30 Pantoprazole (Protonix Iv) 40 mg DAILY@06 IV ; Start 05/31/18 at 06:00 Potassium Chloride/Dextrose/ Sod Cl 1,000 ml @ 100 mls/hr Q10H IV Last administered on 05/31/18at 01:22; Admin Dose 100 MLS/HR; Start 05/30/18 at 22:22 Heparin Sodium (Porcine) (Heparin (5000 Units/1ml)) 5,000 unit Q8 SC ; Start 05/31/18 at 06:00 Naloxone HCl (Narcan) 0.1 mg Q2M PRN IV .RESP RATE; Start 05/30/18 at 23:00; Stop 05/31/18 at 22:59 Ketorolac Tromethamine (Toradol) 30 mg Q6H PRN IV PAIN AFTER CSECTION; Start 05/30/18 at 23:00; Stop 05/31/18 at 22:59 Hydromorphone HCl (Dilaudid) 0.2 mg Q3H PRN IV .PAIN 1-5; Start 05/30/18 at 23:00; Stop 05/31/18 at 22:59 Hydromorphone HCl (Dilaudid) 0.4 mg Q3H PRN IV .PAIN 6-10; Start 05/30/18 at 23:00; Stop 05/31/18 at 22:59 JESSE COSTELLO May 31, 2018 12:21
--- NOTE | 2018-05-31 15:21 | PN ---
Date/Time of Note Date/Time of Note DATE: 05/31/18 TIME: 15:16 Assessment/Plan Lines/Catheters IV Catheter Type (from Nrsg): Peripheral IV Central line still needed: No Francois in Place (from Nrsg): Yes (Inserted in OR) Assessment/Plan Chief Complaint/Hosp Course Past postop operative day after small bowel resection for gallstone ileus. So f ar smooth postoperative course. Continue n.p.o., NG suction, IV hydration, monitoring. We will stop antibiotics. Problems: (1) Gallstone ileus of small intestine Status: Acute Assessment/Plan Patient needs assistance with ambulation. Subjective 24 Hr Interval Summary Patient is first POD after small bowel resection for gallstone ileus. Patient is doing relatively well, feels much better than yesterday. She has been stable hemodynamically, her heart rate below 80. Still large amount of output from her NG tube. Patient does not pass gas or having bowel movement. Pain is well controlled Constitutional: improved Feeding: NPO Pain Control: well controlled Exam/Review of Systems Vital Signs Vitals Vital Signs Date Temp Pulse Resp B/P (MAP) Pulse Ox O2 O2 Flow FiO2 Time Delivery Rate 05/31/18 78 12:01 05/31/18 97.5 21 105/59 96 11:38 (74) 05/31/18 Nasal 3.0 08:00 Cannula Intake and Output 05/30/18 05/30/18 05/31/18 1515:00 23:00 07:00 IntakeIntake Total 2000 ml 0 ml OutputOutput Total 250 ml 550 ml BalanceBalance 1750 ml -550 ml Exam Gastrointestinal: soft, non-tender, other (Wound is clean) Results Result Diagram: 05/31/18 0828 05/31/18 0828 JAMEE AVILES MD May 31, 2018 15:21
[2018-05-31] MEDS: DIPHENHYDRAMINE 50 MG INJ IV PRN (21:08)
[2018-05-31] MEDS: FAMOTIDINE 20 MG INJ IV SCH (21:09)
[2018-06-01] VITALS (9 sets, daily range): BP systolic 100–130; BP diastolic 56–73; PULSE 73–113; RESP 18–22; Ht 167.6 cm; Wt 159.7 kg
[2018-06-01] MEDS: D5W-0.45 NACL + KCL 20 MEQ 1,000 ML IV SCH ×3 (06:12→22:10)
[2018-06-01] MEDS: HEPARIN 5,000 UNIT/1 ML VIAL SC SCH ×3 (06:26→22:06)
[2018-06-01] MEDS: FAMOTIDINE 20 MG INJ IV SCH ×2 (08:39→22:04)
--- NOTE | 2018-06-01 12:10 | PN ---
Date/Time of Note Date/Time of Note DATE: 06/01/18 TIME: 12:09 Assessment/Plan VTE Prophylaxis Risk score (from Ns)>0 risk: 2 SCD applied (from Nsg): Yes Pharmacological prophylaxis: other Lines/Catheters IV Catheter Type (from Nrsg): Peripheral IV Urinary Cath still in place: Yes Reason Cath still needed: urinary retention Assessment/Plan Hospital Course S: Patient worked with PT and OT earlier today and able to ambulate. Seen by surgery team yesterday. Still has not had bowel movement or passed gas yet. There is still moderate output from the NG tube. Patient denies any abdominal pain. O: VS - see below PHYSICAL EXAMINATION: GENERAL: lying in bed, answering questions appropriately. No acute distress. NG tube in place. HEENT: Pupils equal, round, reactive to light, somewhat intact. NECK: Supple, no thyromegaly. LUNGS: Clear to auscultation bilaterally. CARDIOVASCULAR: S1, S2 heard. No rubs or gallops. ABDOMEN: Less firm less distended, no rebound or guarding. MUSCULOSKELETAL: No lower extremity edema bilaterally. NEUROLOGIC: No focal deficits. A. Date/Time of Note Date/Time of Note DATE: 05/30/18 TIME: 22:01 Operative Report Procedure Date: May 30, 2018 Preoperative Diagnosis Small bowel obstruction Postoperative Diagnosis Gallstone ileus. Complete small bowel obstruction Operation/Procedure Performed Exploratory laparoscopy converted to laparotomy. Small bowel resection. ASSESSMENT AND PLAN: 68-year-old female coming in with nausea, vomiting for 8 days with signs of SBO on CT scan, status post surgical repair POD # 2. 1. Nausea, vomiting, abdominal pain - secondary to SBO. Status post surgical repair postop day # 2. - Continue NG tube, per surgery consult recommendations for now - Continue antiemetic medications, IV fluids -Monitor output from NG tube, CBC and BMP every morning -Continue PT and OT 2. AK I: Improving, secondary to #1, likely prerenal component -Continue IV fluids, monitor BUN/creatinine levels in the a.m. 3. Gastrointestinal prophylaxis, PPI. Result Diagram: 06/01/18 0704 06/01/18 0704 Results 24hrs Laboratory Tests Test 06/01/18 07:04 White Blood Count 8.1 # Red Blood Count 5.00 Hemoglobin 14.4 Hematocrit 45.6 Mean Corpuscular Volume 91.2 Mean Corpuscular Hemoglobin 28.8 L Mean Corpuscular Hemoglobin Concent 31.6 L Red Cell Distribution Width 15.0 H Platelet Count 174 Mean Platelet Volume 13.2 H Immature Granulocytes % 0.500 H Neutrophils % 71.8 Lymphocytes % 11.6 L Monocytes % 14.6 H Eosinophils % 1.0 Basophils % 0.5 Nucleated Red Blood Cells % 0.0 Immature Granulocytes # 0.040 H Neutrophils # 5.8 Lymphocytes # 0.9 Monocytes # 1.2 H Eosinophils # 0.1 Basophils # 0.0 Nucleated Red Blood Cells # 0.0 Sodium Level 133 L Potassium Level 4.2 Chloride Level 96 L Carbon Dioxide Level 29 Anion Gap 8 Blood Urea Nitrogen 28 H Creatinine 1.03 H Est Glomerular Filtrat Rate mL/min 53 L Glucose Level 144 Calcium Level 8.4 Exam/Review of Systems Exam Vitals Vital Signs Date Temp Pulse Resp B/P (MAP) Pulse Ox O2 O2 Flow FiO2 Time Delivery Rate 06/01/18 97.8 101 18 100/56 92 Nasal 11:04 (71) Cannula 05/31/18 3.0 20:00 Intake and Output 05/31/18 05/31/18 06/01/18 1515:00 23:00 07:00 IntakeIntake Total 1100 ml 500 ml OutputOutput Total 1300 ml 700 ml BalanceBalance 1100 ml -800 ml -700 ml Results Results 24hrs Laboratory Tests Test 06/01/18 07:04 White Blood Count 8.1 # Red Blood Count 5.00 Hemoglobin 14.4 Hematocrit 45.6 Mean Corpuscular Volume 91.2 Mean Corpuscular Hemoglobin 28.8 L Mean Corpuscular Hemoglobin Concent 31.6 L Red Cell Distribution Width 15.0 H Platelet Count 174 Mean Platelet Volume 13.2 H Immature Granulocytes % 0.500 H Neutrophils % 71.8 Lymphocytes % 11.6 L Monocytes % 14.6 H Eosinophils % 1.0 Basophils % 0.5 Nucleated Red Blood Cells % 0.0 Immature Granulocytes # 0.040 H Neutrophils # 5.8 Lymphocytes # 0.9 Monocytes # 1.2 H Eosinophils # 0.1 Basophils # 0.0 Nucleated Red Blood Cells # 0.0 Sodium Level 133 L Potassium Level 4.2 Chloride Level 96 L Carbon Dioxide Level 29 Anion Gap 8 Blood Urea Nitrogen 28 H Creatinine 1.03 H Est Glomerular Filtrat Rate mL/min 53 L Glucose Level 144 Calcium Level 8.4 Medications Medication Current Medications IV Flush (NS 3 ml) 3 ml PER PROTOCOL IV ; Start 05/30/18 at 18:30 Acetaminophen (Tylenol Tab) 650 mg Q6H PRN PO .PAIN 1-3 OR TEMP; Start 05/30/18 at 18:30 Acetaminophen/ Hydrocodone Bitart ([place] (5/325)) 1 tab Q6H PRN PO .MOD PAIN 4- 6; Start 05/30/18 at 18:30 Morphine Sulfate (morphine) 2 mg Q4H PRN IV .SEVERE PAIN 7-10 Last administered on 06/01/18at 11:18; Admin Dose 2 MG; Start 05/30/18 at 18:30 Docusate Sodium (Colace) 100 mg Q12H PRN PO .CONSTIPATION; Start 05/30/18 at 18:30 Magnesium Hydroxide (Milk Of Mag) 30 ml DAILY PRN PO .CONSTIPATION; Start 05/30/18 at 18:30 Lorazepam (Ativan) 0.5 mg Q6H PRN IV ANXIETY; Start 05/30/18 at 18:30 Albuterol/ Ipratropium (Duoneb) 3 ml Q4H RESP THERAPY PRN HHN SHORTNESS OF B REATH; Start 05/30/18 at 18:30 Hydralazine HCl (Apresoline) 10 mg Q6H PRN IV ELEVATED BLOOD PRESSURE; Start 05/30/18 at 18:30 Nitroglycerin (Nitroglycerin (Sl Tab) 0.4 Mg) 1 tab Q5M PRN SL ANGINA; Start 05/30/18 at 18:30 Morphine Sulfate (morphine) 2 mg Q2H PRN IV BREAKTHROUGH PAIN; Start 05/30/18 at 22:30 Diphenhydramine HCl (Benadryl) 25 mg Q6H PRN IV ITCHING Last administered on 05/31/18at 21:08; Admin Dose 25 MG; Start 05/30/18 at 22:30 Ondansetron HCl (Zofran Inj) 4 mg Q6H PRN IV NAUSEA AND/OR VOMITING; Start 05/30/18 at 22:30 Potassium Chloride/Dextrose/ Sod Cl 1,000 ml @ 100 mls/hr Q10H IV Last administered on 06/01/18at 11:12; Admin Dose 100 MLS/HR; Start 05/30/18 at 22:22 Heparin Sodium (Porcine) (Heparin (5000 Units/1ml)) 5,000 unit Q8 SC Last administered on 06/01/18at 06:26; Admin Dose 5,000 UNIT; Start 05/31/18 at 06:00 Famotidine (Pepcid Iv) 20 mg BID IV Last administered on 06/01/18at 08:39; Admin Dose 20 MG; Start 05/31/18 at 21:00 JESSE COSTELLO Jun 01, 2018 12:10
[2018-06-01] MEDS: LORAZEPAM 2 MG INJ IV PRN (22:04)
[2018-06-02 02:20] VITALS: BP 137/65; PULSE 89; RESP 18
[2018-06-02] MEDS: HEPARIN 5,000 UNIT/1 ML VIAL SC SCH ×3 (05:39→22:15)
[2018-06-02] MEDS: D5W-0.45 NACL + KCL 20 MEQ 1,000 ML IV SCH ×2 (07:54→23:26)
[2018-06-02 08:29] VITALS: BP 137/60; PULSE 81; RESP 18
[2018-06-02] MEDS: FAMOTIDINE 20 MG INJ IV SCH ×2 (09:40→22:08)
[2018-06-02] MEDS ORDERED: CEPASTAT LOZENGE MT PRN (09:48)
--- NOTE | 2018-06-02 13:25 | PN ---
Date/Time of Note Date/Time of Note DATE: 06/02/18 TIME: 13:24 Assessment/Plan VTE Prophylaxis Risk score (from Ns)>0 risk: 8 SCD applied (from Nsg): Yes Pharmacological prophylaxis: other Lines/Catheters IV Catheter Type (from Nrsg): Peripheral IV Urinary Cath still in place: Yes Reason Cath still needed: urinary retention Assessment/Plan Hospital Course S: Patient had her NG tube, last night but reinserted this morning. Since that time she has had 3 bowel movements and has been able to pass gas. Denies any abdominal pain. O: VS - see below PHYSICAL EXAMINATION: GENERAL: lying in bed, answering questions appropriately. No acute distress. NG tube in place. HEENT: Pupils equal, round, reactive to light, somewhat intact. NECK: Supple, no thyromegaly. LUNGS: Clear to auscultation bilaterally. CARDIOVASCULAR: S1, S2 heard. No rubs or gallops. ABDOMEN: Less firm less distended, no rebound or guarding. MUSCULOSKELETAL: No lower extremity edema bilaterally. NEUROLOGIC: No focal deficits. A. Date/Time of Note Date/Time of Note DATE: 05/30/18 TIME: 22:01 Operative Report Procedure Date: May 30, 2018 Preoperative Diagnosis Small bowel obstruction Postoperative Diagnosis Gallstone ileus. Complete small bowel obstruction Operation/Procedure Performed Exploratory laparoscopy converted to laparotomy. Small bowel resection. ASSESSMENT AND PLAN: 68-year-old female coming in with nausea, vomiting for 8 days with signs of SBO on CT scan, status post surgical repair POD # 3. 1. Nausea, vomiting, abdominal pain - secondary to SBO. Status post surgical repair postop day # 3. - Continue NG tube, per surgery consult recommendations although we will results of them today and see if this can be removed since patient is now having bowel movement and passing gas - Continue antiemetic medications, IV fluids -Monitor output from NG tube, CBC and BMP every morning -Continue PT and OT 2. AK I: Improving, secondary to #1, likely prerenal component -Continue IV fluids, monitor BUN/creatinine levels in the a.m. 3. Gastrointestinal prophylaxis, PPI. Result Diagram: 06/02/18 0507 06/02/18 0507 Results 24hrs Laboratory Tests Test 06/02/18 05:07 White Blood Count 7.7 Red Blood Count 4.88 Hemoglobin 14.2 Hematocrit 43.8 Mean Corpuscular Volume 89.8 Mean Corpuscular Hemoglobin 29.1 Mean Corpuscular Hemoglobin Concent 32.4 Red Cell Distribution Width 15.0 H Platelet Count 191 Mean Platelet Volume 13.2 H Immature Granulocytes % 0.300 Neutrophils % 66.1 Lymphocytes % 15.2 Monocytes % 14.4 H Eosinophils % 3.3 Basophils % 0.7 Nucleated Red Blood Cells % 0.0 Immature Granulocytes # 0.020 Neutrophils # 5.1 Lymphocytes # 1.2 Monocytes # 1.1 H Eosinophils # 0.3 Basophils # 0.1 Nucleated Red Blood Cells # 0.0 Sodium Level 135 Potassium Level 3.7 Chloride Level 99 Carbon Dioxide Level 30 Anion Gap 6 Blood Urea Nitrogen 15 # Creatinine 0.74 Est Glomerular Filtrat Rate mL/min > 60 Glucose Level 142 Calcium Level 8.3 L Exam/Review of Systems Exam Vitals Vital Signs Date Temp Pulse Resp B/P (MAP) Pulse Ox O2 O2 Flow FiO2 Time Delivery Rate 06/02/18 98.6 81 18 137/60 93 Room Air 08:29 (85) 05/31/18 3.0 20:00 Intake and Output 06/01/18 06/01/18 06/02/18 1515:00 23:00 07:00 IntakeIntake Total 1000 ml 700 ml OutputOutput Total 300 ml 525 ml 1100 ml BalanceBalance -300 ml 475 ml -400 ml Results Results 24hrs Laboratory Tests Test 06/02/18 05:07 White Blood Count 7.7 Red Blood Count 4.88 Hemoglobin 14.2 Hematocrit 43.8 Mean Corpuscular Volume 89.8 Mean Corpuscular Hemoglobin 29.1 Mean Corpuscular Hemoglobin Concent 32.4 Red Cell Distribution Width 15.0 H Platelet Count 191 Mean Platelet Volume 13.2 H Immature Granulocytes % 0.300 Neutrophils % 66.1 Lymphocytes % 15.2 Monocytes % 14.4 H Eosinophils % 3.3 Basophils % 0.7 Nucleated Red Blood Cells % 0.0 Immature Granulocytes # 0.020 Neutrophils # 5.1 Lymphocytes # 1.2 Monocytes # 1.1 H Eosinophils # 0.3 Basophils # 0.1 Nucleated Red Blood Cells # 0.0 Sodium Level 135 Potassium Level 3.7 Chloride Level 99 Carbon Dioxide Level 30 Anion Gap 6 Blood Urea Nitrogen 15 # Creatinine 0.74 Est Glomerular Filtrat Rate mL/min > 60 Glucose Level 142 Calcium Level 8.3 L Medications Medication Current Medications IV Flush (NS 3 ml) 3 ml PER PROTOCOL IV ; Start 05/30/18 at 18:30 Acetaminophen (Tylenol Tab) 650 mg Q6H PRN PO .PAIN 1-3 OR TEMP; Start 05/30/18 at 18:30 Acetaminophen/ Hydrocodone Bitart ([place] (5/325)) 1 tab Q6H PRN PO .MOD PAIN 4- 6; Start 05/30/18 at 18:30 Morphine Sulfate (morphine) 2 mg Q4H PRN IV .SEVERE PAIN 7-10 Last administered on 06/01/18at 11:18; Admin Dose 2 MG; Start 05/30/18 at 18:30 Docusate Sodium (Colace) 100 mg Q12H PRN PO .CONSTIPATION; Start 05/30/18 at 18:30 Magnesium Hydroxide (Milk Of Mag) 30 ml DAILY PRN PO .CONSTIPATION; Start 05/30/18 at 18:30 Lorazepam (Ativan) 0.5 mg Q6H PRN IV ANXIETY Last administered on 06/01/18at 22:04; Admin Dose 0.5 MG; Start 05/30/18 at 18:30 Albuterol/ Ipratropium (Duoneb) 3 ml Q4H RESP THERAPY PRN HHN SHORTNESS OF BREATH; Start 05/30/18 at 18:30 Hydralazine HCl (Apresoline) 10 mg Q6H PRN IV ELEVATED BLOOD PRESSURE; Start 05/30/18 at 18:30 Nitroglycerin (Nitroglycerin (Sl Tab) 0.4 Mg) 1 tab Q5M PRN SL ANGINA; Start 05/30/18 at 18:30 Morphine Sulfate (morphine) 2 mg Q2H PRN IV BREAKTHROUGH PAIN; Start 05/30/18 at 22:30 Diphenhydramine HCl (Benadryl) 25 mg Q6H PRN IV ITCHING Last administered on 05/31/18at 21:08; Admin Dose 25 MG; Start 05/30/18 at 22:30 Ondansetron HCl (Zofran Inj) 4 mg Q6H PRN IV NAUSEA AND/OR VOMITING; Start 05/30/18 at 22:30 Potassium Chloride/Dextrose/ Sod Cl 1,000 ml @ 100 mls/hr Q10H IV Last administered on 06/02/18at 07:54; Admin Dose 100 MLS/HR; Start 05/30/18 at 22:22 Heparin Sodium (Porcine) (Heparin (5000 Units/1ml)) 5,000 unit Q8 SC Last administered on 06/02/18at 05:39; Admin Dose 5,000 UNIT; Start 05/31/18 at 06:00 Famotidine (Pepcid Iv) 20 mg BID IV Last administered on 06/02/18at 09:40; Admin Dose 20 MG; Start 05/31/18 at 21:00 Phenol (Cepastat Lozenge) 1 lozenge Q1H PRN MT SORE THROAT; Start 06/02/18 at 09:48 JESSE COSTELLO Jun 02, 2018 13:25
--- NOTE | 2018-06-02 14:26 | PN ---
Date/Time of Note Date/Time of Note DATE: 06/02/18 TIME: 14:23 Assessment/Plan Lines/Catheters IV Catheter Type (from Nrsg): Peripheral IV Francois in Place (from Nrsg): Yes Assessment/Plan Chief Complaint/Hosp Course Past postop operative day after small bowel resection for gallstone ileus. So far smooth postoperative course. Continue n.p.o., will DC NG tube. We will keep n.p.o. for another 24 hours and then advance the diet. Assessment/Plan POD 3 after small bowel resection for gallstone ileus. DC NG tube keep n.p.o. till tomorrow. Subjective 24 Hr Interval Summary Patient is POD 3 after small bowel resection for gallstone ileus. Patient subjectively is doing well, she is passing gas and having bowel movements, do not report significant abdominal pain, denies nausea and vomiting. Constitutional: other (Mild abdominal pain.) Feeding: NPO Pain Control: mild Exam/Review of Systems Vital Signs Vitals Vital Signs Date Temp Pulse Resp B/P (MAP) Pulse Ox O2 O2 Flow FiO2 Time Delivery Rate 06/02/18 98.6 81 18 137/60 93 Room Air 08:29 (85) 05/31/18 3.0 20:00 Intake and Output 06/01/18 06/01/18 06/02/18 1515:00 23:00 07:00 IntakeIntake Total 1000 ml 700 ml OutputOutput Total 300 ml 525 ml 1100 ml BalanceBalance -300 ml 475 ml -400 ml Exam Gastrointestinal: other (Abdomen is soft less distended not tender at all wound looks clean.) Results Result Diagram: 06/02/18 0507 06/02/18 0507 JAMEE AVILES MD Jun 02, 2018 14:26
[2018-06-02 15:09] VITALS: BP 123/74; PULSE 87; RESP 18
[2018-06-02 19:15] VITALS: BP 130/71; PULSE 86; RESP 20
[2018-06-02] MEDS: ZOLPIDEM 5 MG TAB PO PRN (21:09)
[2018-06-02] MEDS: DIPHENHYDRAMINE 50 MG INJ IV PRN (23:34)
[2018-06-03 02:20] VITALS: BP 123/68; PULSE 93; RESP 20
[2018-06-03] MEDS: HEPARIN 5,000 UNIT/1 ML VIAL SC SCH ×3 (06:17→20:45)
[2018-06-03] MEDS: D5W-0.45 NACL + KCL 20 MEQ 1,000 ML IV SCH ×3 (06:22→20:39)
[2018-06-03 08:30] VITALS: BP 129/79; PULSE 109; RESP 20
[2018-06-03] MEDS: FAMOTIDINE 20 MG INJ IV SCH ×2 (09:26→20:39)
--- NOTE | 2018-06-03 11:48 | PN ---
Date/Time of Note Date/Time of Note DATE: 06/03/18 TIME: 11:45 Assessment/Plan VTE Prophylaxis Risk score (from Nsg)>0 risk: 3 SCD applied (from Nsg): Yes Pharmacological prophylaxis: other Lines/Catheters IV Catheter Type (from Nrsg): Peripheral IV Urinary Cath still in place: Yes Reason Cath still needed: urinary retention Assessment/Plan Hospital Course S: Patient worked with OT earlier today able to ambulate some with assistance. NG tube has been out since yesterday. No acute events overnight. O: VS - see below PHYSICAL EXAMINATION: GENERAL: lying in bed,,No acute distress. NG tube in place. HEENT: Pupils equal, round, reactive to light, somewhat intact. NECK: Supple, no thyromegaly. LUNGS: Clear to auscultation bilaterally. CARDIOVASCULAR: S1, S2 heard. No rubs or gallops. ABDOMEN: Less firm less distended, no rebound or guarding. MUSCULOSKELETAL: No lower extremity edema bilaterally. NEUROLOGIC: No focal deficits. A. Date/Time of Note Date/Time of Note DATE: 05/30/18 TIME: 22:01 Operative Report Procedure Date: May 30, 2018 Preoperative Diagnosis Small bowel obstruction Postoperative Diagnosis Gallstone ileus. Complete small bowel obstruction Operation/Procedure Performed Exploratory laparoscopy converted to laparotomy. Small bowel resection. ASSESSMENT AND PLAN: 68-year-old female coming in with nausea, vomiting for 8 days with signs of SBO on CT scan, status post surgical repair POD # 4. 1. Nausea, vomiting, abdominal pain - secondary to SBO. Status post surgical repair postop day # 4. - Monitor, follow-up post surgical patients with surgery team including diet - Continue antiemetic medications, IV fluidsng - Continue PT and OT 2. UCHE: Improving, secondary to #1, likely prerenal component - Continue IV fluids, monitor BUN/creatinine levels in the a.m. 3. Gastrointestinal prophylaxis, PPI. Result Diagram: 06/03/18 0446 06/03/186 Results 24hrs Laboratory Tests Test 06/03/18 04:46 White Blood Count 8.1 Red Blood Count 4.99 Hemoglobin 14.5 Hematocrit 45.3 Mean Corpuscular Volume 90.8 Mean Corpuscular Hemoglobin 29.1 Mean Corpuscular Hemoglobin Concent 32.0 Red Cell Distribution Width 14.7 H Platelet Count 191 Mean Platelet Volume 12.8 H Immature Granulocytes % 0.700 H Neutrophils % 68.7 Lymphocytes % 13.5 L Monocytes % 12.7 H Eosinophils % 3.7 Basophils % 0.7 Nucleated Red Blood Cells % 0.0 Immature Granulocytes # 0.060 H Neutrophils # 5.5 Lymphocytes # 1.1 Monocytes # 1.0 H Eosinophils # 0.3 Basophils # 0.1 Nucleated Red Blood Cells # 0.0 Sodium Level 137 Potassium Level 4.0 Chloride Level 98 Carbon Dioxide Level 30 Anion Gap 9 Blood Urea Nitrogen 8 Creatinine 0.60 Est Glomerular Filtrat Rate mL/min > 60 Glucose Level 130 Calcium Level 8.2 L Exam/Review of Systems Exam Vitals Vital Signs Date Temp Pulse Resp B/P (MAP) Pulse Ox O2 O2 Flow FiO2 Time Delivery Rate 06/03/18 98.6 109 20 129/79 92 08:30 (96) 06/03/18 Room Air 02:20 05/31/18 3.0 20:00 Intake and Output 06/02/18 06/02/18 06/03/18 1515:00 23:00 07:00 IntakeIntake Total 300 ml 900 ml 1000 ml OutputOutput Total 850 ml 900 ml BalanceBalance 300 ml 50 ml 100 ml Results Results 24hrs Laboratory Tests Test 06/03/18 04:46 White Blood Count 8.1 Red Blood Count 4.99 Hemoglobin 14.5 Hematocrit 45.3 Mean Corpuscular Volume 90.8 Mean Corpuscular Hemoglobin 29.1 Mean Corpuscular Hemoglobin Concent 32.0 Red Cell Distribution Width 14.7 H Platelet Count 191 Mean Platelet Volume 12.8 H Immature Granulocytes % 0.700 H Neutrophils % 68.7 Lymphocytes % 13.5 L Monocytes % 12.7 H Eosinophils % 3.7 Basophils % 0.7 Nucleated Red Blood Cells % 0.0 Immature Granulocytes # 0.060 H Neutrophils # 5.5 Lymphocytes # 1.1 Monocytes # 1.0 H Eosinophils # 0.3 Basophils # 0.1 Nucleated Red Blood Cells # 0.0 Sodium Level 137 Potassium Level 4.0 Chloride Level 98 Carbon Dioxide Level 30 Anion Gap 9 Blood Urea Nitrogen 8 Creatinine 0.60 Est Glomerular Filtrat Rate mL/min > 60 Glucose Level 130 Calcium Level 8.2 L Medications Medication Current Medications IV Flush (NS 3 ml) 3 ml PER PROTOCOL IV ; Start 05/30/18 at 18:30 Acetaminophen (Tylenol Tab) 650 mg Q6H PRN PO .PAIN 1-3 OR TEMP; Start 05/30/18 at 18:30 Acetaminophen/ Hydrocodone Bitart ([place] (5/325)) 1 tab Q6H PRN PO .MOD PAIN 4- 6; Start 05/30/18 at 18:30 Morphine Sulfate (morphine) 2 mg Q4H PRN IV .SEVERE PAIN 7-10 Last administered on 06/01/18at 11:18; Admin Dose 2 MG; Start 05/30/18 at 18:30 Docusate Sodium (Colace) 100 mg Q12H PRN PO .CONSTIPATION; Start 05/30/18 at 18:30 Magnesium Hydroxide (Milk Of Mag) 30 ml DAILY PRN PO .CONSTIPATION; Start 05/30/18 at 18:30 Lorazepam (Ativan) 0.5 mg Q6H PRN IV ANXIETY Last administered on 06/01/18at 22:04; Admin Dose 0.5 MG; Start 05/30/18 at 18:30 Albuterol/ Ipratropium (Duoneb) 3 ml Q4H RESP THERAPY PRN HHN SHORTNESS OF BREATH; Start 05/30/18 at 18:30 Hydralazine HCl (Apresoline) 10 mg Q6H PRN IV ELEVATED BLOOD PRESSURE; Start 05/30/18 at 18:30 Nitroglycerin (Nitroglycerin (Sl Tab) 0.4 Mg) 1 tab Q5M PRN SL ANGINA; Start 05/30/18 at 18:30 Morphine Sulfate (morphine) 2 mg Q2H PRN IV BREAKTHROUGH PAIN; Start 05/30/18 at 22:30 Diphenhydramine HCl (Benadryl) 25 mg Q6H PRN IV ITCHING Last administered on 06/02/18at 23:34; Admin Dose 25 MG; Start 05/30/18 at 22:30 Ondansetron HCl (Zofran Inj) 4 mg Q6H PRN IV NAUSEA AND/OR VOMITING; Start 05/30/18 at 22:30 Potassium Chloride/Dextrose/ Sod Cl 1,000 ml @ 100 mls/hr Q10H IV Last administered on 06/03/18at 09:26; Admin Dose 100 MLS/HR; Start 05/30/18 at 22:22 Heparin Sodium (Porcine) (Heparin (5000 Units/1ml)) 5,000 unit Q8 SC Last administered on 06/03/18at 06:17; Admin Dose 5,000 UNIT; Start 05/31/18 at 06:00 Famotidine (Pepcid Iv) 20 mg BID IV Last administered on 06/03/18at 09:26; Admin Dose 20 MG; Start 05/31/18 at 21:00 Phenol (Cepastat Lozenge) 1 lozenge Q1H PRN MT SORE THROAT; Start 06/02/18 at 09:48 Zolpidem Tartrate (Ambien) 2.5 mg HS PRN PO INSOMNIA Last administered on 06/02/18at 21:09; Admin Dose 2.5 MG; Start 06/02/18 at 19:00 JESSE COSTELLO Jun 03, 2018 11:48
[2018-06-03 15:23] VITALS: BP 96/62; PULSE 87; RESP 20
[2018-06-03 20:10] VITALS: BP 128/65; PULSE 68; RESP 18
[2018-06-03] MEDS: LORAZEPAM 2 MG INJ IV PRN (20:40)
[2018-06-04 02:46] VITALS: BP 128/70; PULSE 70; RESP 18
[2018-06-04] MEDS: D5W-0.45 NACL + KCL 20 MEQ 1,000 ML IV SCH ×2 (05:50→16:52)
[2018-06-04] MEDS: HEPARIN 5,000 UNIT/1 ML VIAL SC SCH ×3 (05:54→21:28)
[2018-06-04 07:38] VITALS: BP 117/58; PULSE 77; RESP 19
[2018-06-04] MEDS: FAMOTIDINE 20 MG INJ IV SCH ×2 (08:39→21:24)
--- NOTE | 2018-06-04 14:22 | PN ---
Date/Time of Note Date/Time of Note DATE: 06/04/18 TIME: 14:20 Assessment/Plan VTE Prophylaxis Risk score (from Nsg)>0 risk: 6 SCD applied (from Nsg): Yes Pharmacological prophylaxis: other Lines/Catheters IV Catheter Type (from Nrsg): Peripheral IV Urinary Cath still in place: Yes Reason Cath still needed: urinary retention Assessment/Plan Hospital Course S: Patient worked with OT yesterday, able to ambulate. Tolerating liquid diet. Having some loose stools however with some urinary incontinence. O: VS - see below PHYSICAL EXAMINATION: GENERAL: lying in bed,,No acute distress. HEENT: Pupils equal, round, reactive to light, somewhat intact. NECK: Supple, no thyromegaly. LUNGS: Clear to auscultation bilaterally. CARDIOVASCULAR: S1, S2 heard. No rubs or gallops. ABDOMEN: Less firm less distended, no rebound or guarding. MUSCULOSKELETAL: No lower extremity edema bilaterally. NEUROLOGIC: No focal deficits. A. Date/Time of Note Date/Time of Note DATE: 05/30/18 TIME: 22:01 Operative Report Procedure Date: May 30, 2018 Preoperative Diagnosis Small bowel obstruction Postoperative Diagnosis Gallstone ileus. Complete small bowel obstruction Operation/Procedure Performed Exploratory laparoscopy converted to laparotomy. Small bowel resection. ASSESSMENT AND PLAN: 68-year-old female coming in with nausea, vomiting for 8 days with signs of SBO on CT scan, status post surgical repair POD # 5. 1. Nausea, vomiting, abdominal pain - secondary to SBO. Status post surgical repair postop day # 5. - Monitor, follow-up post surgical patients with surgery team including diet -liquid for now - Continue antiemetic medications, IV fluids - Continue PT and OT 2. UCHE: Improving, secondary to #1, likely prerenal component - Continue IV fluids, monitor BUN/creatinine levels in the a.m. 3. Gastrointestinal prophylaxis, PPI. Result Diagram: 06/04/18 0414 06/04/184 Results 24hrs Laboratory Tests Test 06/04/18 04:14 White Blood Count 8.6 Red Blood Count 4.80 Hemoglobin 13.9 Hematocrit 44.4 Mean Corpuscular Volume 92.5 Mean Corpuscular Hemoglobin 29.0 Mean Corpuscular Hemoglobin Concent 31.3 L Red Cell Distribution Width 14.9 H Platelet Count 239 # Mean Platelet Volume 12.2 H Immature Granulocytes % 1.200 H Neutrophils % 60.1 Lymphocytes % 17.3 Monocytes % 14.6 H Eosinophils % 5.8 Basophils % 1.0 Nucleated Red Blood Cells % 0.0 Immature Granulocytes # 0.100 H Neutrophils # 5.2 Lymphocytes # 1.5 Monocytes # 1.3 H Eosinophils # 0.5 Basophils # 0.1 Nucleated Red Blood Cells # 0.0 Sodium Level 137 Potassium Level 3.5 Chloride Level 98 Carbon Dioxide Level 33 H Anion Gap 6 Blood Urea Nitrogen 6 L Creatinine 0.63 Est Glomerular Filtrat Rate mL/min > 60 Glucose Level 134 Calcium Level 8.2 L Exam/Review of Systems Exam Vitals Vital Signs Date Temp Pulse Resp B/P (MAP) Pulse Ox O2 O2 Flow FiO2 Time Delivery Rate 06/04/18 98.4 77 19 117/58 97 07:38 (77) 06/04/18 Room Air 02:46 05/31/18 3.0 20:00 Intake and Output 06/03/18 06/03/18 06/04/18 1414:59 22:59 06:59 IntakeIntake Total 450 ml 1510 ml 1200 ml OutputOutput Total 200 ml 150 ml BalanceBalance 450 ml 1310 ml 1050 ml Results Results 24hrs Laboratory Tests Test 06/04/18 04:14 White Blood Count 8.6 Red Blood Count 4.80 Hemoglobin 13.9 Hematocrit 44.4 Mean Corpuscular Volume 92.5 Mean Corpuscular Hemoglobin 29.0 Mean Corpuscular Hemoglobin Concent 31.3 L Red Cell Distribution Width 14.9 H Platelet Count 239 # Mean Platelet Volume 12.2 H Immature Granulocytes % 1.200 H Neutrophils % 60.1 Lymphocytes % 17.3 Monocytes % 14.6 H Eosinophils % 5.8 Basophils % 1.0 Nucleated Red Blood Cells % 0.0 Immature Granulocytes # 0.100 H Neutrophils # 5.2 Lymphocytes # 1.5 Monocytes # 1.3 H Eosinophils # 0.5 Basophils # 0.1 Nucleated Red Blood Cells # 0.0 Sodium Level 137 Potassium Level 3.5 Chloride Level 98 Carbon Dioxide Level 33 H Anion Gap 6 Blood Urea Nitrogen 6 L Creatinine 0.63 Est Glomerular Filtrat Rate mL/min > 60 Glucose Level 134 Calcium Level 8.2 L Medications Medication Current Medications IV Flush (NS 3 ml) 3 ml PER PROTOCOL IV ; Start 05/30/18 at 18:30 Acetaminophen (Tylenol Tab) 650 mg Q6H PRN PO .PAIN 1-3 OR TEMP; Start 05/30/18 at 18:30 Acetaminophen/ Hydrocodone Bitart ([place] (5/325)) 1 tab Q6H PRN PO .MOD PAIN 4- 6; Start 05/30/18 at 18:30 Morphine Sulfate (morphine) 2 mg Q4H PRN IV .SEVERE PAIN 7-10 Last administered on 06/01/18at 11:18; Admin Dose 2 MG; Start 05/30/18 at 18:30 Docusate Sodium (Colace) 100 mg Q12H PRN PO .CONSTIPATION; Start 05/30/18 at 18:30 Magnesium Hydroxide (Milk Of Mag) 30 ml DAILY PRN PO .CONSTIPATION; Start 05/30/18 at 18:30 Lorazepam (Ativan) 0.5 mg Q6H PRN IV ANXIETY Last administered on 06/03/18at 20:40; Admin Dose 0.5 MG; Start 05/30/18 at 18:30 Albuterol/ Ipratropium (Duoneb) 3 ml Q4H RESP THERAPY PRN HHN SHORTNESS OF [place]ISE TH; Start 05/30/18 at 18:30 Hydralazine HCl (Apresoline) 10 mg Q6H PRN IV ELEVATED BLOOD PRESSURE; Start 05/30/18 at 18:30 Nitroglycerin (Nitroglycerin (Sl Tab) 0.4 Mg) 1 tab Q5M PRN SL ANGINA; Start 05/30/18 at 18:30 Morphine Sulfate (morphine) 2 mg Q2H PRN IV BREAKTHROUGH PAIN; Start 05/30/18 a t 22:30 Diphenhydramine HCl (Benadryl) 25 mg Q6H PRN IV ITCHING Last administered on 06/02/18at 23:34; Admin Dose 25 MG; Start 05/30/18 at 22:30 Ondansetron HCl (Zofran Inj) 4 mg Q6H PRN IV NAUSEA AND/OR VOMITING; Start 05/30/18 at 22:30 Potassium Chloride/Dextrose/ Sod Cl 1,000 ml @ 100 mls/hr Q10H IV Last administered on 06/04/18at 05:50; Admin Dose 100 MLS/HR; Start 05/30/18 at 22:22 Heparin Sodium (Porcine) (Heparin (5000 Units/1ml)) 5,000 unit Q8 SC Last administered on 06/04/18at 05:54; Admin Dose 5,000 UNIT; Start 05/31/18 at 06:00 Famotidine (Pepcid Iv) 20 mg BID IV Last administered on 06/04/18at 08:39; Admin Dose 20 MG; Start 05/31/18 at 21:00 Phenol (Cepastat Lozenge) 1 lozenge Q1H PRN MT SORE THROAT; Start 06/02/18 at 09:48 Zolpidem Tartrate (Ambien) 2.5 mg HS PRN PO INSOMNIA Last administered on 06/02/18at 21:09; Admin Dose 2.5 MG; Start 06/02/18 at 19:00 JESSE COSTELLO Jun 04, 2018 14:22
[2018-06-04] MEDS ORDERED: LOPERAMIDE 2 MG CAP PO ONE (14:30)
[2018-06-04 14:43] VITALS: BP 121/58; PULSE 87; RESP 18
[2018-06-04 20:00] VITALS: BP 129/60; PULSE 88; RESP 18
[2018-06-04] MEDS: LORAZEPAM 2 MG INJ IV PRN (22:39)
[2018-06-04] MEDS: ZOLPIDEM 5 MG TAB PO PRN (23:50)
[2018-06-05] MEDS ORDERED: ZOLPIDEM 5 MG TAB PO ONE (01:09)
[2018-06-05 02:00] VITALS: BP 126/57; PULSE 109; RESP 17
[2018-06-05] MEDS: D5W-0.45 NACL + KCL 20 MEQ 1,000 ML IV SCH ×3 (03:10→15:03)
[2018-06-05] MEDS: HEPARIN 5,000 UNIT/1 ML VIAL SC SCH ×3 (06:08→21:18)
[2018-06-05 07:52] VITALS: BP 96/52; PULSE 89; RESP 18
[2018-06-05] MEDS: FAMOTIDINE 20 MG INJ IV SCH ×2 (09:00→21:16)
--- NOTE | 2018-06-05 13:13 | PN ---
Date/Time of Note Date/Time of Note DATE: 06/05/18 TIME: 13:10 Assessment/Plan VTE Prophylaxis Risk score (from Ns)>0 risk: 4 SCD applied (from Ns): Yes Pharmacological prophylaxis: other Lines/Catheters IV Catheter Type (from Nrs): Peripheral IV Urinary Cath still in place: No Assessment/Plan Hospital Course S: Patient still feeling weak, UA positive for UTI. Having less stool i ncontinence now. O: VS - see below PHYSICAL EXAMINATION: GENERAL: lying in bed,,No acute distress. HEENT: Pupils equal, round, reactive to light, somewhat intact. NECK: Supple, no thyromegaly. LUNGS: Clear to auscultation bilaterally. CARDIOVASCULAR: S1, S2 heard. No rubs or gallops. ABDOMEN: Less firm less distended, no rebound or guarding. MUSCULOSKELETAL: No lower extremity edema bilaterally. NEUROLOGIC: No focal deficits. A. Date/Time of Note Date/Time of Note DATE: 05/30/18 TIME: 22:01 Operative Report Procedure Date: May 30, 2018 Preoperative Diagnosis Small bowel obstruction Postoperative Diagnosis Gallstone ileus. Complete small bowel obstruction Operation/Procedure Performed Exploratory laparoscopy converted to laparotomy. Small bowel resection. ASSESSMENT AND PLAN: 68-year-old female coming in with nausea, vomiting for 8 days with signs of SBO on CT scan, status post surgical repair POD # 6. 1. Nausea, vomiting, abdominal pain - secondary to SBO. Symptoms resolved now status post surgical repair postop day # 6. - Monitor, follow-up post surgical patients with surgery team including diet -liquid diet only per surgery recommendation - Continue antiemetic medications, IV fluids - Continue PT and OT -patient using front wheel walker for ambulation 2. UCHE: Improving, secondary to #1, likely prerenal component - Continue IV fluids, monitor BUN/creatinine levels in the a.m. 3. Gastrointestinal prophylaxis, PPI. 4. UTI -UA positive, start Levaquin, follow final urine culture results Dispo: Likely home in 24 hours with front wheel walker. Patient will need prescription for antibiotic for UTI, likely sleep medicine, opiate pain medicine given her surgery, and possibly Imodium as needed. Result Diagram: 06/05/18 0429 06/05/18 0429 Results 24hrs Laboratory Tests Test 06/05/18 04:29 06/05/18 10:30 White Blood Count 9.2 Red Blood Count 4.80 Hemoglobin 14.0 Hematocrit 45.0 Mean Corpuscular Volume 93.8 Mean Corpuscular Hemoglobin 29.2 Mean Corpuscular Hemoglobin Concent 31.1 L Red Cell Distribution Width 15.0 H Platelet Count 239 Mean Platelet Volume 11.5 H Immature Granulocytes % 1.000 H Neutrophils % 58.4 Lymphocytes % 17.2 Monocytes % 16.0 H Eosinophils % 6.2 Basophils % 1.2 Nucleated Red Blood Cells % 0.0 Immature Granulocytes # 0.090 H Neutrophils # 5.4 Lymphocytes # 1.6 Monocytes # 1.5 H Eosinophils # 0.6 H Basophils # 0.1 Nucleated Red Blood Cells # 0.0 Sodium Level 139 Potassium Level 4.0 Chloride Level 102 Carbon Dioxide Level 34 H Anion Gap 3 L Blood Urea Nitrogen 3 L Creatinine 0.58 Est Glomerular Filtrat Rate mL/min > 60 Glucose Level 126 Calcium Level 8.3 L Urine Color YELLOW Urine Clarity SLIGHTLY CLOUDY A Urine pH 5.0 Urine Specific [place] 1.008 Urine Ketones NEGATIVE Urine Nitrite NEGATIVE Urine Bilirubin NEGATIVE Urine Urobilinogen NEGATIVE Urine Leukocyte Esterase 2+ H Urine Microscopic RBC 6 H Urine Microscopic WBC 29 H Urine Squamous Epithelial Cells MODERATE Urine Bacteria FEW A Urine Mucus FEW A Urine Yeast (Budding) FEW A Urine Hemoglobin 1+ H Urine Glucose NEGATIVE Urine Total Protein NEGATIVE Exam/Review of Systems Exam Vitals Vital Signs Date Temp Pulse Resp B/P (MAP) Pulse Ox O2 O2 Flow FiO2 Time Delivery Rate 06/05/18 98.3 89 18 96/52 (67) 96 07:52 06/04/18 Room Air 02:46 Intake and Output 06/04/18 06/04/18 06/05/18 1515:00 23:00 07:00 IntakeIntake Total 1200 ml 1000 ml 1500 ml BalanceBalance 1200 ml 1000 ml 1500 ml Results Results 24hrs Laboratory Tests Test 06/05/18 04:29 06/05/18 10:30 White Blood Count 9.2 Red Blood Count 4.80 Hemoglobin 14.0 Hematocrit 45.0 Mean Corpuscular Volume 93.8 Mean Corpuscular Hemoglobin 29.2 Mean Corpuscular Hemoglobin Concent 31.1 L Red Cell Distribution Width 15.0 H Platelet Count 239 Mean Platelet Volume 11.5 H Immature Granulocytes % 1.000 H Neutrophils % 58.4 Lymphocytes % 17.2 Monocytes % 16.0 H Eosinophils % 6.2 Basophils % 1.2 Nucleated Red Blood Cells % 0.0 Immature Granulocytes # 0.090 H Neutrophils # 5.4 Lymphocytes # 1.6 Monocytes # 1.5 H Eosinophils # 0.6 H Basophils # 0.1 Nucleated Red Blood Cells # 0.0 Sodium Level 139 Potassium Level 4.0 Chloride Level 102 Carbon Dioxide Level 34 H Anion Gap 3 L Blood Urea Nitrogen 3 L Creatinine 0.58 Est Glomerular Filtrat Rate mL/min > 60 Glucose Level 126 Calcium Level 8.3 L Urine Color YELLOW Urine Clarity SLIGHTLY CLOUDY A Urine pH 5.0 Urine Specific [place] 1.008 Urine Ketones NEGATIVE Urine Nitrite NEGATIVE Urine Bilirubin NEGATIVE Urine Urobilinogen NEGATIVE Urine Leukocyte Esterase 2+ H Urine Microscopic RBC 6 H Urine Microscopic WBC 29 H Urine Squamous Epithelial Cells MODERATE Urine Bacteria FEW A Urine Mucus FEW A Urine Yeast (Budding) FEW A Urine Hemoglobin 1+ H Urine Glucose NEGATIVE Urine Total Protein NEGATIVE Medications Medication Current Medications IV Flush (NS 3 ml) 3 ml PER PROTOCOL IV ; Start 05/30/18 at 18:30 Acetaminophen (Tylenol Tab) 650 mg Q6H PRN PO .PAIN 1-3 OR TEMP; Start 05/30/18 at 18:30 Acetaminophen/ Hydrocodone Bitart ([place] (5/325)) 1 tab Q6H PRN PO .MOD PAIN 4- 6; Start 05/30/18 at 18:30 Morphine Sulfate (morphine) 2 mg Q4H PRN IV .SEVERE PAIN 7-10 Last administered on 06/01/18at 11:18; Admin Dose 2 MG; Start 05/30/18 at 18:30 Docusate Sodium (Colace) 100 mg Q12H PRN PO .CONSTIPATION; Start 05/30/18 at 18:30 Magnesium Hydroxide (Milk Of Mag) 30 ml DAILY PRN PO .CONSTIPATION; Start 05/30/18 at 18:30 Lorazepam (Ativan) 0.5 mg Q6H PRN IV ANXIETY Last administered on 06/04/18at 22:39; Admin Dose 0.5 MG; Start 05/30/18 at 18:30 Albuterol/ Ipratropium (Duoneb) 3 ml Q4H RESP THERAPY PRN HHN SHORTNESS OF BREATH; Start 05/30/18 at 18:30 Hydralazine HCl (Apresoline) 10 mg Q6H PRN IV ELEVATED BLOOD PRESSURE; Start at 18:30 Nitroglycerin (Nitroglycerin (Sl Tab) 0.4 Mg) 1 tab Q5M PRN SL ANGINA; Start 05/30/18 at 18:30 Morphine Sulfate (morphine) 2 mg Q2H PRN IV BREAKTHROUGH PAIN; Start 05/30/18 at 22:30 Diphenhydramine HCl (Benadryl) 25 mg Q6H PRN IV ITCHING Last administered on 06/02/18at 23:34; Admin Dose 25 MG; Start 05/30/18 at 22:30 Ondansetron HCl (Zofran Inj) 4 mg Q6H PRN IV NAUSEA AND/OR VOMITING; Start 05/30/18 at 22:30 Potassium Chloride/Dextrose/ Sod Cl 1,000 ml @ 100 mls/hr Q10H IV Last administered on 06/05/18at 03:10; Admin Dose 100 MLS/HR; Start 05/30/18 at 22:22 Heparin Sodium (Porcine) (Heparin (5000 Units/1ml)) 5,000 unit Q8 SC Last administered on 06/05/18at 06:08; Admin Dose 5,000 UNIT; Start 05/31/18 at 06:00 Famotidine (Pepcid Iv) 20 mg BID IV Last administered on 06/04/18at 21:24; Admin Dose 20 MG; Start 05/31/18 at 21:00 Phenol (Cepastat Lozenge) 1 lozenge Q1H PRN MT SORE THROAT; Start 06/02/18 at 09:48 Levofloxacin (Levaquin) 750 mg DAILY@06 NGT ; Start 06/05/18 at 13:00 Zolpidem Tartrate (Ambien) 5 mg HS PRN PO INSOMNIA; Start 06/05/18 at 13:00 JESSE COSTELLO Jun 05, 2018 13:13
[2018-06-05 14:00] VITALS: BP 130/77; PULSE 81; RESP 18
[2018-06-05] MEDS: LEVOFLOXACIN 750 MG TABLET NGT SCH (15:07)
[2018-06-05 21:18] VITALS: BP 125/83; PULSE 112; RESP 18
[2018-06-05] MEDS: LORAZEPAM 2 MG INJ IV PRN (22:02)
[2018-06-05] MEDS: ZOLPIDEM 5 MG TAB PO PRN (23:36)
[2018-06-06 02:35] VITALS: BP 125/56; PULSE 89; RESP 18
[2018-06-06] MEDS: D5W-0.45 NACL + KCL 20 MEQ 1,000 ML IV SCH ×2 (04:22→11:13)
[2018-06-06] MEDS: LEVOFLOXACIN 750 MG TABLET NGT SCH (06:28)
[2018-06-06] MEDS: HEPARIN 5,000 UNIT/1 ML VIAL SC SCH ×3 (06:31→21:38)
[2018-06-06 07:32] VITALS: BP 107/58; PULSE 90; RESP 18
[2018-06-06] MEDS: FAMOTIDINE 20 MG INJ IV SCH ×2 (09:00→21:34)
[2018-06-06 14:17] VITALS: BP 103/64; PULSE 64; RESP 18
--- NOTE | 2018-06-06 18:29 | PN ---
Date/Time of Note Date/Time of Note DATE: 06/06/18 TIME: 18:27 Assessment/Plan VTE Prophylaxis Risk score (from Nsg)>0 risk: 4 SCD applied (from Ns): No SCD contraindicated: bilateral LE trauma Pharmacological prophylaxis: heparin Lines/Catheters IV Catheter Type (from Nrs): Peripheral IV Urinary Cath still in place: No Assessment/Plan Assessment/Plan ASSESSMENT AND PLAN: 68-year-old female coming in with nausea, vomiting for 8 days with signs of SBO on CT scan, status post surgical repair POD # 6. 1. Nausea, vomiting, abdominal pain - secondary to SBO. Symptoms resolved now status post surgical repair postop day # 6. - Monitor, follow-up post surgical patients with surgery team including diet -liquid diet only per surgery recommendation - Continue antiemetic medications, IV fluids - Continue PT and OT -patient using front wheel walker for ambulation 2. UCHE: Improving, secondary to #1, likely prerenal component - Continue IV fluids, monitor BUN/creatinine levels in the a.m. 3. Gastrointestinal prophylaxis, PPI. 4. UTI -UA positive, start Levaquin, follow final urine culture results Dispo: Likely home in 24 hours with front wheel walker. Patient will need prescription for antibiotic for UTI, likely sleep medicine, opiate pain medicine given her surgery, and possibly Imodium as needed. Result Diagram: 06/06/18 0506 06/06/18 0506 Subjective 24 Hr Interval Summary Free Text/Dictation No acute overnight events. Patient had some urinary and stool incontinence yesterday; now slightly resolving. Very poor appetite. Tolerating clear liquids. Exam/Review of Systems Exam Vitals Vital Signs Date Temp Pulse Resp B/P (MAP) Pulse Ox O2 O2 Flow FiO2 Time Delivery Rate 06/06/18 98.7 64 18 103/64 96 14:17 (77) 06/06/18 Room Air 02:35 Intake and Output 06/05/18 06/05/18 06/06/18 1515:00 23:00 07:00 IntakeIntake Total 1000 ml 1150 ml 800 ml OutputOutput Total 400 ml BalanceBalance 1000 ml 750 ml 800 ml Exam GENERAL: Morbidly obese woman lying in bed,,No acute distress. HEENT: Pupils equal, round, reactive to light, somewhat intact. NECK: Supple, no thyromegaly. LUNGS: Clear to auscultation bilaterally. CARDIOVASCULAR: S1, S2 heard. No rubs or gallops. ABDOMEN: Midline incision well healed, zach in place. MUSCULOSKELETAL: No lower extremity edema bilaterally. Results Results 24hrs Laboratory Tests Test 06/06/18 05:06 White Blood Count 10.0 Red Blood Count 4.55 Hemoglobin 13.3 Hematocrit 43.1 Mean Corpuscular Volume 94.7 Mean Corpuscular Hemoglobin 29.2 Mean Corpuscular Hemoglobin Concent 30.9 L Red Cell Distribution Width 15.0 H Platelet Count 267 Mean Platelet Volume 11.7 H Immature Granulocytes % 0.800 H Neutrophils % 68.3 Lymphocytes % 13.7 L Monocytes % 12.0 H Eosinophils % 4.5 Basophils % 0.7 Nucleated Red Blood Cells % 0.0 Immature Granulocytes # 0.080 H Neutrophils # 6.9 Lymphocytes # 1.4 Monocytes # 1.2 H Eosinophils # 0.5 Basophils # 0.1 Nucleated Red Blood Cells # 0.0 Sodium Level 137 Potassium Level 4.0 Chloride Level 101 Carbon Dioxide Level 35 H Anion Gap 1 L Blood Urea Nitrogen 3 L Creatinine 0.55 Est Glomerular Filtrat Rate mL/min > 60 Glucose Level 121 Calcium Level 8.5 Medications Medication Current Medications IV Flush (NS 3 ml) 3 ml PER PROTOCOL IV ; Start 05/30/18 at 18:30 Acetaminophen (Tylenol Tab) 650 mg Q6H PRN PO .PAIN 1-3 OR TEMP; Start 05/30/18 at 18:30 Acetaminophen/ Hydrocodone Bitart ([place] (5/325)) 1 tab Q6H PRN PO .MOD PAIN 4- 6; Start 05/30/18 at 18:30 Morphine Sulfate (morphine) 2 mg Q4H PRN IV .SEVERE PAIN 7-10 Last administered on 06/01/18at 11:18; Admin Dose 2 MG; Start 05/30/18 at 18:30 Docusate Sodium (Colace) 100 mg Q12H PRN PO .CONSTIPATION; Start 05/30/18 at 18:30 Magnesium Hydroxide (Milk Of Mag) 30 ml DAILY PRN PO .CONSTIPATION; Start 05/30/18 at 18:30 Lorazepam (Ativan) 0.5 mg Q6H PRN IV ANXIETY Last administered on 06/05/18at 22:02; Admin Dose 0.5 MG; Start 05/30/18 at 18:30 Albuterol/ Ipratropium (Duoneb) 3 ml Q4H RESP THERAPY PRN HHN SHORTNESS OF BREATH; Start 05/30/18 at 18:30 Hydralazine HCl (Apresoline) 10 mg Q6H PRN IV ELEVATED BLOOD PRESSURE; Start 05/30/18 at 18:30 Nitroglycerin (Nitroglycerin (Sl Tab) 0.4 Mg) 1 tab Q5M PRN SL ANGINA; Start 05/30/18 at 18:30 Morphine Sulfate (morphine) 2 mg Q2H PRN IV BREAKTHROUGH PAIN; Start 05/30/18 at 22:30 Diphenhydramine HCl (Benadryl) 25 mg Q6H PRN IV ITCHING Last administered on 06/02/18at 23:34; Admin Dose 25 MG; Start 05/30/18 at 22:30 Ondansetron HCl (Zofran Inj) 4 mg Q6H PRN IV NAUSEA AND/OR VOMITING; Start 05/30/18 at 22:30 Potassium Chloride/Dextrose/ Sod Cl 1,000 ml @ 100 mls/hr Q10H IV Last administered on 06/06/18 11:13; Admin Dose 100 MLS/HR; Start 05/30/18 at 22:22 Heparin Sodium (Porcine) (Heparin (5000 Units/1ml)) 5,000 unit Q8 SC Last administered on 06/06/18 14:26; Admin Dose 5,000 UNIT; Start 05/31/18 at 06:00 Famotidine (Pepcid Iv) 20 mg BID IV Last administered on 06/05/18 21:16; Admin Dose 20 MG; Start 05/31/18 at 21:00 Phenol (Cepastat Lozenge) 1 lozenge Q1H PRN MT SORE THROAT; Start 06/02/18 at 09:48 Levofloxacin (Levaquin) 750 mg DAILY@06 NGT Last administered on 06/06/18 06:28; Admin Dose 750 MG; Start 06/05/18 at 13:00 Zolpidem Tartrate (Ambien) 5 mg HS PRN PO INSOMNIA Last administered on 06/05/18 23:36; Admin Dose 5 MG; Start 06/05/18 at 13:00 FABIÁN PEÑA MD Jun 06, 2018 18:29
[2018-06-06 20:00] VITALS: BP 108/66; PULSE 104; RESP 18
[2018-06-06] MEDS: LORAZEPAM 2 MG INJ IV PRN (21:49)
[2018-06-06] MEDS: ZOLPIDEM 5 MG TAB PO PRN (23:20)
[2018-06-07] MEDS: D5W-0.45 NACL + KCL 20 MEQ 1,000 ML IV SCH ×3 (00:22→20:22)
[2018-06-07] MEDS: HYDROCORTISONE 1% 28.35 GM OINT TOP SCH ×3 (01:00→21:03)
[2018-06-07 03:32] VITALS: BP 108/56; PULSE 93; RESP 18
[2018-06-07] MEDS: LEVOFLOXACIN 750 MG TABLET NGT SCH (06:38)
[2018-06-07] MEDS: HEPARIN 5,000 UNIT/1 ML VIAL SC SCH ×3 (06:40→21:06)
[2018-06-07 07:36] VITALS: BP 106/50; PULSE 61; RESP 20
[2018-06-07] MEDS: FAMOTIDINE 20 MG INJ IV SCH ×2 (09:00→21:03)
[2018-06-07 14:05] VITALS: BP 113/56; PULSE 78; RESP 18
--- NOTE | 2018-06-07 15:36 | PN ---
Date/Time of Note Date/Time of Note DATE: 06/07/18 TIME: 15:35 Assessment/Plan VTE Prophylaxis Risk score (from Ns)>0 risk: 7 SCD applied (from Ns): Yes Pharmacological prophylaxis: NA/contraindicated Pharm contraindication: low risk/ambulating Lines/Catheters IV Catheter Type (from Nrsg): Peripheral IV Urinary Cath still in place: No Assessment/Plan Assessment/Plan ASSESSMENT AND PLAN: 68-year-old female coming in with nausea, vomiting for 8 days with signs of SBO on CT scan, status post surgical repair POD # 6. 1. Nausea, vomiting, abdominal pain - secondary to SBO. Symptoms resolved now status post surgical repair - Monitor, follow-up post surgical patients with surgery team including diet - Continue antiemetic medications, IV fluids - Continue PT and OT -patient using front wheel walker for ambulation 2. Diarrhea - C diff negative - prn Imodium 3. Gastrointestinal prophylaxis, PPI. 4. UTI -UA positive, start Levaquin, follow final urine culture results Dispo: Likely home in 24 hours with front wheel walker. Patient will need prescription for antibiotic for UTI, likely sleep medicine, opiate pain medicine given her surgery, and Imodium as needed. Result Diagram: 06/07/18 0505 06/07/18 0505 Subjective 24 Hr Interval Summary Free Text/Dictation Continues to have copious greenish diarrhea. Otherwise feeling well, no acute changes. Exam/Review of Systems Exam Vitals Vital Signs Date Temp Pulse Resp B/P (MAP) Pulse Ox O2 O2 Flow FiO2 Time Delivery Rate 06/07/18 98.0 78 18 113/56 97 Room Air 14:05 (75) Intake and Output 06/06/18 06/06/18 06/07/18 1515:00 23:00 07:00 IntakeIntake Total 350 ml 1300 ml BalanceBalance 350 ml 1300 ml Exam GENERAL: Morbidly obese woman lying in bed,,No acute distress. HEENT: Pupils equal, round, reactive to light, somewhat intact. NECK: Supple, no thyromegaly. LUNGS: Clear to auscultation bilaterally. CARDIOVASCULAR: S1, S2 heard. No rubs or gallops. ABDOMEN: Midline incision well healed, zach in place. MUSCULOSKELETAL: No lower extremity edema bilaterally. Results Results 24hrs Laboratory Tests Test 06/07/18 05:05 White Blood Count 13.9 #H Red Blood Count 4.54 Hemoglobin 13.3 Hematocrit 41.8 Mean Corpuscular Volume 92.1 Mean Corpuscular Hemoglobin 29.3 Mean Corpuscular Hemoglobin Concent 31.8 L Red Cell Distribution Width 15.0 H Platelet Count 281 Mean Platelet Volume 11.0 H Immature Granulocytes % 0.800 H Neutrophils % 76.9 Lymphocytes % 10.5 L Monocytes % 8.9 Eosinophils % 2.2 Basophils % 0.7 Nucleated Red Blood Cells % 0.0 Immature Granulocytes # 0.110 H Neutrophils # 10.7 H Lymphocytes # 1.5 Monocytes # 1.2 H Eosinophils # 0.3 Basophils # 0.1 Nucleated Red Blood Cells # 0.0 Sodium Level 136 Potassium Level 4.0 Chloride Level 100 Carbon Dioxide Level 33 H Anion Gap 3 L Blood Urea Nitrogen 9 Creatinine 0.73 Est Glomerular Filtrat Rate mL/min > 60 Glucose Level 122 Calcium Level 8.6 Medications Medication Current Medications IV Flush (NS 3 ml) 3 ml PER PROTOCOL IV ; Start 05/30/18 at 18:30 Acetaminophen (Tylenol Tab) 650 mg Q6H PRN PO .PAIN 1-3 OR TEMP; Start 05/30/18 at 18:30 Acetaminophen/ Hydrocodone Bitart ([place] (5/325)) 1 tab Q6H PRN PO .MOD PAIN 4- 6; Start 05/30/18 at 18:30 Morphine Sulfate (morphine) 2 mg Q4H PRN IV .SEVERE PAIN 7-10 Last administered on 06/01/18at 11:18; Admin Dose 2 MG; Start 05/30/18 at 18:30 Docusate Sodium (Colace) 100 mg Q12H PRN PO .CONSTIPATION; Start 05/30/18 at 18:30 Magnesium Hydroxide (Milk Of Mag) 30 ml DAILY PRN PO .CONSTIPATION; Start 05/30/18 at 18:30 Lorazepam (Ativan) 0.5 mg Q6H PRN IV ANXIETY Last administered on 06/06/18at 21:49; Admin Dose 0.5 MG; Start 05/30/18 at 18:30 Albuterol/ Ipratropium (Duoneb) 3 ml Q4H RESP THERAPY PRN HHN SHORTNESS OF BREATH; Start 05/30/18 at 18:30 Hydralazine HCl (Apresoline) 10 mg Q6H PRN IV ELEVATED BLOOD PRESSURE; Start 05/30/18 at 18:30 Nitroglycerin (Nitroglycerin (Sl Tab) 0.4 Mg) 1 tab Q5M PRN SL ANGINA; Start 05/30/18 at 18:30 Morphine Sulfate (morphine) 2 mg Q2H PRN IV BREAKTHROUGH PAIN; Start 05/30/18 at 22:30 Diphenhydramine HCl (Benadryl) 25 mg Q6H PRN IV ITCHING Last administered on 06/02/18 23:34; Admin Dose 25 MG; Start 05/30/18 at 22:30 Ondansetron HCl (Zofran Inj) 4 mg Q6H PRN IV NAUSEA AND/OR VOMITING; Start 05/30/18 at 22:30 Potassium Chloride/Dextrose/ Sod Cl 1,000 ml @ 100 mls/hr Q10H IV Last administered on 06/07/18 06:44; Admin Dose 100 MLS/HR; Start 05/30/18 at 22:22 Heparin Sodium (Porcine) (Heparin (5000 Units/1ml)) 5,000 unit Q8 SC Last administered on 06/07/18 15:15; Admin Dose 5,000 UNIT; Start 05/31/18 at 06:00 Famotidine (Pepcid Iv) 20 mg BID IV Last administered on 06/06/18 21:34; Admin Dose 20 MG; Start 05/31/18 at 21:00 Phenol (Cepastat Lozenge) 1 lozenge Q1H PRN MT SORE THROAT; Start 06/02/18 at 09:48 Levofloxacin (Levaquin) 750 mg DAILY@06 NGT Last administered on 06/07/18 06:38; Admin Dose 750 MG; Start 06/05/18 at 13:00 Zolpidem Tartrate (Ambien) 5 mg HS PRN PO INSOMNIA Last administered on 06/06/18 23:20; Admin Dose 5 MG; Start 06/05/18 at 13:00 Hydrocortisone (Hydrocortisone 1% Oint) 1 applic BID TOP Last administered on 06/07/18 09:50; Admin Dose 1 APPLIC; Start 06/07/18 at 01:00 FABIÁN PEÑA MD Jun 07, 2018 15:36
[2018-06-07] MEDS: LOPERAMIDE 2 MG CAP PO PRN ×2 (15:41→21:07)
[2018-06-07 20:20] VITALS: BP 120/58; PULSE 108; RESP 18
[2018-06-07] MEDS: ZOLPIDEM 5 MG TAB PO PRN (21:11)
[2018-06-07] MEDS: LORAZEPAM 2 MG INJ IV PRN (21:11)
[2018-06-08] MEDS ORDERED: ZOLPIDEM 5 MG TAB PO ONE (01:00)
[2018-06-08] MEDS: D5W-0.45 NACL + KCL 20 MEQ 1,000 ML IV SCH (01:22)
[2018-06-08 02:55] VITALS: BP 118/62; PULSE 96; RESP 18
[2018-06-08] MEDS: LEVOFLOXACIN 750 MG TABLET NGT SCH (06:45)
[2018-06-08] MEDS: HEPARIN 5,000 UNIT/1 ML VIAL SC SCH (06:46)
[2018-06-08 07:20] VITALS: BP 93/50; PULSE 104; RESP 18
[2018-06-08] MEDS: FAMOTIDINE 20 MG INJ IV SCH (09:59)
[2018-06-08] MEDS: HYDROCORTISONE 1% 28.35 GM OINT TOP SCH (10:06)
[2018-06-08] MEDS ORDERED: HYDR28OI6 TOP (10:51)
[2018-06-08] MEDS ORDERED: LOPE-123 PO (10:51)
[2018-06-08] MEDS ORDERED: LEVO750T25 PO (10:51)
--- NOTE | 2018-06-08 10:54 | PDOCDIS ---
Discharge Instructions DIAGNOSIS Discharge Diagnosis Gallstone ileus CONDITION [id number] Patient Condition: [id number] Good HOME CARE INSTRUCTIONS: [id number] Diet Instructions: [id number] Regular ACTIVITY: [id number] Activity Restrictions: [id number] Slowly Increase Activity Rest between Activity Avoid heavy lifting Do not Drive Do not operate Machinery Do not operate Power Tool Avoid Heavy Housework [id number] Bathing Restrictions: [id number] Shower FOLLOW UP/APPOINTMENTS Follow-up Plan 1. Take ibuprofen or tylenol for pain. 2. Take loperamide as needed for diarrhea 3. See Dr. Harris in clinic as scheduled. FABIÁN PEÑA MD Jun 08, 2018 10:54
--- NOTE | 2018-06-08 13:45 | PN ---
Date/Time of Note Date/Time of Note DATE: 06/08/18 TIME: 13:44 Assessment/Plan Lines/Catheters IV Catheter Type (from Nrsg): Peripheral IV Francois in Place (from Nrsg): No Assessment/Plan Chief Complaint/Hosp Course Past postop operative day after small bowel resection for gallstone ileus. So far smooth postoperative course. Continue n.p.o., will DC NG tube. We will keep n.p.o. for another 24 hours and then advance the diet. Assessment/Plan Patient is ready for discharge instructions given and will see the patient next week for follow-up appointment home health ordered Subjective 24 Hr Interval Summary Patient is seen before discharge Constitutional: ambulates, BM, flatus, cough Feeding: advancing diet Pain Control: well controlled Exam/Review of Systems Vital Signs Vitals Vital Signs Date Temp Pulse Resp B/P (MAP) Pulse Ox O2 O2 Flow FiO2 Time Delivery Rate 06/08/18 98.2 104 18 93/50 (64) 94 07:20 06/07/18 Room Air 14:05 Intake and Output 06/07/18 06/07/18 06/08/18 1515:00 23:00 07:00 IntakeIntake Total 740 ml 1500 ml OutputOutput Total 1 ml 1 ml BalanceBalance -1 ml 739 ml 1500 ml Exam Constitutional: alert, oriented, well developed Psych: no complaints, nl mood/affect Head: normocephalic, atraumatic Eyes: nl conjunctiva, EOMI, nl lids, nl sclera ENMT: nl external ears & nose, nl lips & teeth, nl nasal mucosa & septum, mucosa pink and moist Neck: supple, non-tender Respiratory: clear to auscultation, normal air movement Cardiovascular: regular rate and rhythm, nl pulses Gastrointestinal: soft, nl liver, spleen, non-tender, other (Wound is clean half skin zach were removed no evidence of infection) Musculoskeletal: nl extremities to inspection, nl gait and stance Extremities: normal pulses Neurological: TEACHING FELLOW II-XII intact, nl mental status, nl speech, nl strength Skin: nl turgor, rash or lesions Lymph: nl lymph nodes Results Result Diagram: 06/07/18 0505 06/07/18 0505 JAMEE AVILES MD Jun 08, 2018 13:45
[2018-06-08 13:46] VITALS: BP 110/65; PULSE 101; RESP 18
--- NOTE | 2018-06-08 15:45 | DS ---
Date/Time of Note Date/Time of Note DATE: 06/08/18 TIME: 15:41 Discharge Summary Admission/Discharge Info Admit Date/Time May 30, 2018 at 18:22 Discharge Date/Time June 08, 2018 Discharge Diagnosis Gallstone ileus Patient Condition: Good Consults Dr. Ruddy Harris Procedures 05/30/18: Exploratory laparoscopy converted to laparotomy. Small bowel resection. Hx of Present Illness CHIEF COMPLAINT: Nausea, vomiting and mild abdominal pain for 8 days. HISTORY OF PRESENT ILLNESS: A 68-year-old female with no significant no prior history of any surgeries who has been having nausea, vomiting symptoms, some mild abdominal pain for 8 days. She described her vomiting is nonbilious, nonbloody emesis with some heaving and has not had a bowel movement for the last 6 days, but has been passing gas. No prior history of this. Again, no prior history of any surgeries. Denies any upper or lower GI bleeding, no fevers or chills, no diarrhea or constipation. No headaches or dizziness. When she came in, she had a CT abdomen and pelvis performed and it showed findings consistent with small bowel obstruction with transition point in the right pelvis distal ileum. She is also status post cholecystectomy in the past based on what the CT scan showed even though she denied. SURGICAL HISTORY: There is also diffuse pneumobilia of the common bile duct extending to the left greater than right biliary system. CBD is mildly dilated at 8 mm. No obstructive mass or stone is identified distally multiple colonic diverticulosis. A call was made out to the general surgeon who has come to evaluate the patient. An NG tube is in place now as well. The patient did come to the ER 48 hours ago for similar symptoms, but was sent home with what looks like Pepcid and Zofran at that time which obviously did not relieve her symptoms. PAST MEDICAL HISTORY: As above. ALLERGIES: NO KNOWN DRUG ALLERGIES. MEDICATIONS AT HOME: 1. Pepcid 20 mg b.i.d. 2. Zofran 4 mg q.6h. p.r.n. PAST SURGICAL HISTORY: The patient denies any past medical history, but again her CT scan did show signs of a prior cholecystectomy. So, it is unclear if she remembers she had her cholecystectomy, she in fact did. SOCIAL HISTORY: Former smoker, quit 15 years ago. Denies any alcohol abuse or IV drug abuse. FAMILY HISTORY: Noncontributory. Hospital Course The patient had a CT on admission without visible gallbladder; although patient denies every having any surgery including cholecystectomy. She was taken to the OR by Dr. Harris for exp lap; which was converted to open. Found to have gallsto ne lodged in the small bowel; got small bowel resection. 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 Postoperative course was long and complicated by severe diarrhea. She was negative for C diff and started on imodium. Also had urinary incontinence concerning for UTI; will discharge with 10 day course of levofloxacin. Home Meds Active Scripts Hydrocortisone Acetate (ANTI-ITCH) 28 Gm Oint...g., 1 APPLIC TOP BID, #1 BOTTLE Prov:FABIÁN PEÑA MD 06/08/18 Loperamide Hcl* (Loperamide Hcl*) 2 Mg Cap, 2 MG PO QID PRN for DIARRHEA, #60 CAP Prov:FABIÁN PEÑA MD 06/08/18 Levofloxacin* (Levaquin*) 750 Mg Tablet, 750 MG PO DAILY@06, #7 TAB Prov:FABIÁN PEÑA MD 06/08/18 Ondansetron (Ondansetron Odt) 4 Mg Tab.rapdis, 4 MG PO Q6H PRN for NAUSEA AND/OR VOMITING, #10 TAB Prov:MARK RIOS MD 05/28/18 Famotidine* (Pepcid*) 20 Mg Tablet, 20 MG PO BID for 10 Days, TAB Prov:MARK RIOS MD 05/28/18 Follow-up Plan 1. Take ibuprofen or tylenol for pain. 2. Take loperamide as needed for diarrhea 3. See Dr. Harris in clinic as scheduled. Primary Care Provider Care Physician No Primary Time spent on discharge: > 30 minutes FABIÁN PEÑA MD Jun 08, 2018 15:45
[2018-06-08] MEDS ORDERED: ZOLPIDEM 5 MG TAB PO PRN (21:00)
== END 2018-06-08 15:15 | disposition home or self-care (01) | DRG 345 ==
LOC: E/R 15:05 → REC 18:22 → TEL 18:25 → MS1 06-01 13:03
PROVIDERS: ADMIT Surgery; ATTEND Internal Medicine
PROC: 0DB80ZX Excision of Small Intestine, Open Approach, Diagnostic (ICD-10-PCS; 2018-05-30)
PROC: 0DJD4ZZ Inspection of Lower Intestinal Tract, Percutaneous Endoscopic Approach (ICD-10-PCS; principal; 2018-05-30 20:30)
DX: K56.3 Gallstone ileus (principal); N17.9 Acute kidney failure, unspecified; N39.0 Urinary tract infection, site not specified; Z68.43 Body mass index [BMI] 50.0-59.9, adult; E66.9 Obesity, unspecified; Z90.49 Acquired absence of other specified parts of digestive tract; Z87.891 Personal history of nicotine dependence; R19.7 Diarrhea, unspecified; R32 Unspecified urinary incontinence
CPT/HCPCS: 36415; 74176; 76705; 80048; 80053; 80061; 81001; 83036; 83690; 83735; 84100; 84439; 84443; 84484; 85025; 85610; 85730; 87075; 87086; 88305; 93005; 96374; 96375; 96376; 97110; 97116; 97162; 97167; 97530; 97535; C9113; J0295; J0696; J1200; J1644; J2060; J2250; J2270; J2274; J2405; J2795; J3010; J3480; J7030